=== PATIENT | male | born 1930 | race Caucasian/White ===

== ENCOUNTER 2016-10-15 13:45 | Inpatient (IN) | payer MEDICARE, OTHER ==
[2016-10-15 14:21] LABS: CHLORIDE,CL 103 mEq/L (98-106); SODIUM,NA 139 mEq/L (136-145)
[2016-10-15] MEDS ORDERED: Sodium Chloride 0.9% 10 ML Syringe FLUSH PRN (15:24)
[2016-10-15] MEDS ORDERED: Acetaminophen/HYDROcodone 325-5 MG Tab PO PRN (15:29)
[2016-10-15] MEDS ORDERED: cefTRIAXone 1 GM Vial IVPUSH ONE (15:30)
[2016-10-15] MEDS ORDERED: Levofloxacin/Dextrose 5%-Water 500 MG in Premix Bag 1 BAG IV ONE (15:30)
[2016-10-15] MEDS: Acetaminophen 325 MG Tab PO PRN (15:52)
[2016-10-15] MEDS: Naproxen 500 MG Tab PO SCH (16:57)
[2016-10-15] MEDS: Ibuprofen 200 MG Tab PO PRN (16:58)
[2016-10-15] MEDS: Zolpidem 5 MG Tab PO PRN (20:01)
[2016-10-15] MEDS: Enoxaparin 40 MG/0.4 ML Syringe SUBCUT SCH (20:01)
[2016-10-16] MEDS: Lactated Ringers 1,000 ML IV SCH ×3 (01:07→15:57)
[2016-10-16] MEDS: Pantoprazole 40 MG Tab.CR PO SCH (06:13)
[2016-10-16 07:25] LABS: CHLORIDE,CL 105 mEq/L (98-106); SODIUM,NA 139 mEq/L (136-145)
[2016-10-16] MEDS: Torsemide 20 MG Tab PO SCH (07:25)
[2016-10-16] MEDS: Naproxen 500 MG Tab PO SCH ×2 (07:25→19:50)
[2016-10-16] MEDS: amLODIPine 2.5 MG Tab PO SCH (07:26)
[2016-10-16] MEDS: Acetaminophen 325 MG Tab PO PRN ×2 (07:54→15:57)
--- NOTE | 2016-10-16 09:26 | PN ---
DATE: 10/16/2016 S: Kris Lira came in with a month of severe cellulitis of his buttocks with a small abscess. O: On examination this morning, the abscess appears to be coming, the heads all opened up, and later on today cultured. 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 C-reactive protein is up which I suspected. ASSESSMENT: CELLULITIS. P: Continue IV therapy and open an abscess. PAULA/RAMA /[id number]
[2016-10-16] MEDS: Ibuprofen 200 MG Tab PO PRN ×2 (12:28→18:51)
[2016-10-16] MEDS: Enoxaparin 40 MG/0.4 ML Syringe SUBCUT SCH (19:49)
[2016-10-16] MEDS ORDERED: Levofloxacin/Dextrose 5%-Water 100 ML IV ONE (19:50)
[2016-10-16] MEDS: cefTRIAXone 1 GM Vial IVPUSH SCH (19:50)
[2016-10-16] MEDS ORDERED: Levofloxacin/Dextrose 5%-Water 500 MG in Premix Bag 1 BAG IV SCH (20:00)
[2016-10-17] MEDS: Lactated Ringers 1,000 ML IV SCH ×3 (02:40→19:38)
[2016-10-17] MEDS: Pantoprazole 40 MG Tab.CR PO SCH (06:53)
[2016-10-17 08:00] LABS: CHLORIDE,CL 108 mEq/L (98-106); SODIUM,NA 142 mEq/L (136-145)
[2016-10-17] MEDS: amLODIPine 2.5 MG Tab PO SCH (08:04)
[2016-10-17] MEDS: Torsemide 20 MG Tab PO SCH (08:04)
[2016-10-17] MEDS: Naproxen 500 MG Tab PO SCH ×2 (08:04→19:30)
[2016-10-17] MEDS: Acetaminophen 325 MG Tab PO PRN (13:35)
[2016-10-17] MEDS: Docusate Sodium 100 MG Cap PO PRN ×2 (16:05→19:38)
[2016-10-17] MEDS: Enoxaparin 40 MG/0.4 ML Syringe SUBCUT SCH (19:28)
[2016-10-17] MEDS: cefTRIAXone 1 GM Vial IVPUSH SCH (19:31)
[2016-10-17] MEDS: Zolpidem 5 MG Tab PO PRN (21:45)
[2016-10-18] MEDS: Lactated Ringers 1,000 ML IV SCH (03:42)
[2016-10-18] MEDS: Pantoprazole 40 MG Tab.CR PO SCH (06:14)
--- NOTE | 2016-10-18 07:01 | PCM.DCSUM1 ---
Discharge Summary - Hospital Course HPI Initial Comments: Pt was admitted 10/[address] Carlson for cellulitis of buttocks which had spread up his back. He was started on IV antibiotics and has been improving. WBC on 10/15 was 35.1, 10/16 was 24.9 and 10/17 was 18.4. CRP has been going up 10/15 17.1, 10/16 19.7. 10/17 23.7. Culture did ultimately grow staph aureus and he was ultimately changed to vancomycin. Redness has improved and pain has decreased. Very little purulent drainage continues. - Discharge Data Discharge Date: 10/18/16 Discharge Disposition: DC/Tfer W/I Hosp To Swing 61 Condition: Good - Discharge Diagnosis/Problem(s) (1) Cellulitis and abscess of buttock Status: Acute Priority: High Current Visit: Yes Onset Date: ~10/14/16 - Patient Summary/Data Consults: Consultations 10/15/16 15:24 PT Evaluation and Treatment [CONS] Routine Hospital Course: Pt was admitted with cellulitis and IV antibiotics. Has been improving. Culture did grow out staph aureus. WBC has been going down and CRP is going up. He will need continued IV antibiotics so will be swung today. - Patient Instructions Diet: Regular Diet as Tolerated Activity: As Tolerated - Discharge Plan Home Medications: Home Meds amLODIPine Besylate [Amlodipine Besylate] 5 mg PO DAILY 10/12/14 [History] Calcium Carb/D3/Magnesium/Zinc [Michael Mag Zinc + D Tablet] 1 tab PO DAILY [History] Lutein 20 mg PO DAILY 10/05/15 [History] Magnesium 250 mg PO DAILY 10/05/15 [History] Cholecalciferol (Vitamin D3) [Vitamin D3] 1,000 units PO DAILY 08/25/16 [History ] Hydrocodone/Acetaminophen [Hydrocodon-Acetaminophen 5-325] 1 tab PO Q6H PRN 06/29 [History] Pantoprazole Sodium [Protonix] 40 mg PO DAILY 08/25/16 [History] Fluconazole [Diflucan] 100 mg PO DAILY 10/15/16 [History] Naproxen 500 mg PO BID 10/15/16 [History] Torsemide 20 mg PO DAILY 10/15/16 [History] Zolpidem Tartrate 10 mg PO BEDTIME PRN 10/15/16 [History] - Discharge Summary/Plan Comment DC Time >30 min.: Yes Discharge Summary/Plan Comment: transfer to swing bed. - Patient Data Vitals - Most Recent: Last Vital Signs Temp 97.0 F 10/18/16 04:00 Pulse 77 10/18/16 04:00 Resp 16 10/18/16 04:00 BP 126/67 10/18/16 04:00 Pulse Ox 92 L 10/18/16 04:00 Weight - Most Recent: 207 lb 8 oz I&O - Last 24 hours: Intake & Output 10/17/16 10/17/16 10/18/16 14:59 22:59 06:59 Intake Total 1000 1165 1000 Balance 1000 1165 1000 Lab Results - Last 24 hrs: Laboratory Results - last 24 hr 10/17/16 10/17/16 Range/Units 07:25 07:25 WBC 18.4 H (5.0-10.0) 10^3/uL RBC 2.80 L (4.50-6.00) 10^6/uL Hgb 8.8 L (14.0-18.0) g/dL Hct 27.6 L (40.0-54.0) % MCV 98.6 H (82.0-94.0) fL MCH 31.4 (27.0-32.0) pg MCHC 31.9 L (33.0-38.0) g/dL RDW Coeff of Antonio 13.9 (11.0-15.0) % Plt Count 116 L (150-400) 10^3/uL Add Manual Diff Yes Neutrophils % (Manual) 49 (35-85) % Band Neutrophils % 1 (0-5) % Lymphocytes % (Manual) 36 (21-55) % Monocytes % (Manual) 5 (2-12) % Eosinophils % (Manual) 9 H (0-5) % Absolute Neutrophils 9.20 H (1.80-7.00) 10^3/uL Lymphocytes # (Manual) 6.62 H (1.00-4.80) 10^3/uL Monocytes # (Manual) 0.92 H (0.00-0.80) 10^3/uL Eosinophils # (Manual) 1.66 H (0.00-0.45) 10^3/uL Smudge Cells Moderate H (NOT SEEN) Sodium 142 (136-145) mEq/L Potassium 4.3 (3.5-5.0) mEq/L Chloride 108 H (98-106) mEq/L Carbon Dioxide 27 (21-32) mmol/L BUN 14 (7-18) mg/dL Creatinine 1.0 (0.7-1.3) mg/dL Est Cr Clr Drug Dosing 53.20 mL/min Estimated GFR (MDRD) > 60 (>=60) mL/min Glucose 96 (75-99) mg/dL Calcium 8.1 L (8.4-10.1) mg/dL C-Reactive Protein 23.7 H (0.2-0.8) mg/dL MERLENE Results - Last 24 hrs: Microbiology 10/15/16 15:40 Aerobic Blood Culture - Preliminary Blood - Venous NO GROWTH AFTER 2 DAYS Anaerobic Blood Culture - Preliminary NO GROWTH AFTER 2 DAYS 10/15/16 15:35 Aerobic Blood Culture - Preliminary Blood - Venous - Lab Draw NO GROWTH AFTER 2 DAYS Anaerobic Blood Culture - Preliminary NO GROWTH AFTER 2 DAYS 10/16/16 09:00 Wound Culture - Preliminary Buttock, Left Staphylococcus Aureus Med Orders - Current: Current Medications Acetaminophen (Tylenol) 650 mg PO Q4H PRN PRN Reason: Pain (Mild 1-3)/fever Last Admin: 10/17/16 13:35 Dose: 650 mg Hydrocodone Bitart/Acetaminophen ([place] 325-5 Mg) 1 tab PO Q6H PRN PRN Reason: Pain Amlodipine Besylate (Norvasc) 5 mg PO DAILY [facility] Last Admin: 10/17/16 08:04 Dose: 5 mg Ceftriaxone Sodium (Rocephin) 1 gm IVPUSH Q24H [facility] Last Admin: 10/17/16 19:31 Dose: 1 gm Docusate Sodium (Colace) 100 mg PO BID PRN PRN Reason: Constipation Last Admin: 10/17/16 19:38 Dose: 100 mg Enoxaparin Sodium (Lovenox) 40 mg SUBCUT Q24H [facility] Last Admin: 10/17/16 19:28 Dose: 40 mg Lactated Ringer's (Ringers, Lactated) 1,000 mls @ 125 mls/hr IV ASDIRECTED [facility] Last Admin: 10/18/16 03:42 Dose: 125 mls/hr Vancomycin HCl 1 gm/ Sodium (Chloride) 250 mls @ 167 mls/hr IV Q24H [facility] Ibuprofen (Motrin) 600 mg PO Q6H PRN PRN Reason: Fever Last Admin: 10/16/16 18:51 Dose: 600 mg Magnesium Oxide (Magnesium Oxide) 250 mg PO DAILY [facility] Last Admin: 10/17/16 08:04 Dose: 250 mg Naproxen (Naprosyn) 500 mg PO BID [facility] Last Admin: 10/17/16 19:30 Dose: 500 mg Pantoprazole Sodium (Protonix) 40 mg PO 0700 [facility] Last Admin: 10/18/16 06:14 Dose: 40 mg Sodium Chloride (Saline Flush) 10 ml FLUSH ASDIRECTED PRN PRN Reason: Keep Vein Open Torsemide (Demadex) 20 mg PO DAILY [facility] Last Admin: 10/17/16 08:04 Dose: 20 mg Vancomycin HCl (Pharmacy To Dose - Vancomycin) 1 dose .XX ASDIRECTED [facility] Zolpidem Tartrate (Ambien) 10 mg PO BEDTIME PRN PRN Reason: Insomnia Last Admin: 10/17/16 21:45 Dose: 10 mg Discontinued Medications Ceftriaxone Sodium (Rocephin) 1 gm IVPUSH ONETIME ONE Stop: 10/15/16 15:31 Last Admin: 10/15/16 15:52 Dose: 1 gm Levofloxacin/Dextrose 500 mg/ (Premix) 100 mls @ 100 mls/hr IV ONETIME ONE Stop: 10/15/16 16:29 Last Admin: 10/15/16 15:53 Dose: 100 mls/hr Levofloxacin/Dextrose 500 mg/ (Premix) 100 mls @ 100 mls/hr IV Q24H [facility] Last Admin: 10/16/16 19:49 Dose: 100 mls/hr Levofloxacin/Dextrose (Levaquin In D5w 500 Mg/100 Ml) Confirm Administered Dose 100 mls @ as directed IV .STK-MED ONE Stop: 10/16/16 19:51 Last Admin: 10/16/16 21:35 Dose: Not Given Vancomycin HCl 1 gm/ Sodium (Chloride) 250 mls @ 167 mls/hr IV ONETIME ONE Stop: 10/17/16 16:29 Last Admin: 10/17/16 15:16 Dose: 167 mls/hr Naproxen (Naprosyn) 500 mg PO BIDMEALS [facility] Last Admin: 10/16/16 07:25 Dose: 500 mg *Q Meaningful Use (DIS) - VTE *Q VTE Criteria *Q: - Stroke *Q Stroke Criteria *Q: - AMI *Q AMI Criteria *Q:
--- NOTE | 2016-10-18 07:10 | PN ---
DATE: 10/17/2016 Kris Lira is in with staph cellulitis to the buttocks area, it is somewhat improved. I did I and D the abscess yesterday cultured it and that is how the staph was there. We do not know if it is MRSA. We are going to start him on some vancomycin. His white count is coming down nicely. C-reactive protein is going up. He is afebrile, though so clinically he is better and will probably swing him tomorrow. Continue IV antibiotics over the weekend. PAULA/RAMA /[id number]
[2016-10-18 07:37] VITALS: BP 142/76
[2016-10-18] MEDS: amLODIPine 2.5 MG Tab PO SCH (07:37)
[2016-10-18] MEDS: Naproxen 500 MG Tab PO SCH (07:38)
[2016-10-18] MEDS: Docusate Sodium 100 MG Cap PO PRN (07:40)
[2016-10-18] MEDS: Torsemide 20 MG Tab PO SCH (07:41)
[2016-10-18 08:09] LABS: CHLORIDE,CL 106 mEq/L (98-106); SODIUM,NA 142 mEq/L (136-145)
== END 2016-10-18 08:45 | disposition swing bed (61) | DRG 603 ==
LOC: CC.MS 13:45 → CC.FCMC 13:45 → UNDOADMIN 15:02 → CC.MS 15:02
PROVIDERS: ADMIT General Practice; ATTEND General Practice
DX: L03.317 Cellulitis of buttock (principal); C91.10 Chronic lymphocytic leukemia of B-cell type not having achieved remission; C85.90 Non-Hodgkin lymphoma, unspecified, unspecified site; B95.61 Methicillin susceptible Staphylococcus aureus infection as the cause of diseases classified elsewhere; R10.32 Left lower quadrant pain; Z79.899 Other long term (current) drug therapy; M19.90 Unspecified osteoarthritis, unspecified site; I10 Essential (primary) hypertension; E78.5 Hyperlipidemia, unspecified; Z85.46 Personal history of malignant neoplasm of prostate
CPT/HCPCS: 36415; 71020; 80048; 80053; 81001; 85025; 86140; 87040; 87070; 87186; 97161-GP; A9270-GY; J0696; J1650; J1956; J3370; J7050; J7120

== ENCOUNTER 2016-10-18 08:53 | Inpatient (IN) | payer MEDICARE, OTHER ==
[2016-10-18] MEDS ORDERED: Acetaminophen/HYDROcodone 325-5 MG Tab PO PRN (09:23)
[2016-10-18] MEDS ORDERED: Docusate Sodium 100 MG Cap PO PRN (09:23)
[2016-10-18] MEDS ORDERED: Ibuprofen 200 MG Tab PO PRN (09:23)
[2016-10-18] MEDS ORDERED: Sodium Chloride 0.9% 10 ML Syringe FLUSH PRN (09:23)
[2016-10-18] MEDS ORDERED: Acetaminophen 325 MG Tab PO PRN (09:23)
[2016-10-18] MEDS: Enoxaparin 40 MG/0.4 ML Syringe SUBCUT SCH (20:20)
[2016-10-18] MEDS: Naproxen 500 MG Tab PO SCH (20:20)
[2016-10-18] MEDS: cefTRIAXone 1 GM Vial IVPUSH SCH (20:20)
[2016-10-18] MEDS: Zolpidem 5 MG Tab PO PRN (20:26)
[2016-10-19] MEDS: Naproxen 500 MG Tab PO SCH ×2 (07:42→19:47)
[2016-10-19] MEDS: amLODIPine 2.5 MG Tab PO SCH (07:42)
[2016-10-19] MEDS: Torsemide 20 MG Tab PO SCH (07:42)
[2016-10-19] MEDS: Pantoprazole 40 MG Tab.CR PO SCH (07:44)
[2016-10-19 07:57] LABS: CHLORIDE,CL 108 mEq/L (98-106); SODIUM,NA 146 mEq/L (136-145)
[2016-10-19] MEDS: Zolpidem 5 MG Tab PO PRN (19:47)
[2016-10-19] MEDS: Enoxaparin 40 MG/0.4 ML Syringe SUBCUT SCH (19:47)
[2016-10-19] MEDS: cefTRIAXone 1 GM Vial IVPUSH SCH (19:48)
[2016-10-20] MEDS: Pantoprazole 40 MG Tab.CR PO SCH (06:47)
[2016-10-20] MEDS: Torsemide 20 MG Tab PO SCH (07:44)
[2016-10-20] MEDS: Naproxen 500 MG Tab PO SCH ×2 (07:45→19:40)
[2016-10-20] MEDS: amLODIPine 2.5 MG Tab PO SCH (07:45)
[2016-10-20 07:55] LABS: CHLORIDE,CL 108 mEq/L (98-106); SODIUM,NA 144 mEq/L (136-145)
[2016-10-20] MEDS: cefTRIAXone 1 GM Vial IVPUSH SCH (19:39)
[2016-10-20] MEDS: Enoxaparin 40 MG/0.4 ML Syringe SUBCUT SCH (19:39)
[2016-10-20] MEDS: Zolpidem 5 MG Tab PO PRN (19:40)
[2016-10-21] MEDS: Pantoprazole 40 MG Tab.CR PO SCH (06:19)
[2016-10-21 07:38] VITALS: BP 132/63
[2016-10-21] MEDS: Naproxen 500 MG Tab PO SCH (07:45)
[2016-10-21] MEDS: Torsemide 20 MG Tab PO SCH (07:45)
[2016-10-21] MEDS: amLODIPine 2.5 MG Tab PO SCH (07:45)
[2016-10-21 08:43] LABS: CHLORIDE,CL 105 mEq/L (98-106); SODIUM,NA 143 mEq/L (136-145)
--- NOTE | 2016-10-22 09:04 | DISCH ---
HOSPITAL COURSE: Kris Lira is an elderly gentleman with moderate to severe abscess, cellulitis of buttocks. We I and D'ed the abscess, started him on IV antibiotics. He responded nicely. At time of discharge, the abscess had ceased and cellulitis much improved. Lab and x-ray in the hospital, C-reactive protein got as high as 17, prior to discharge 3.7. White count was elevated and hemoglobin was around 10. 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 DISPOSITION: The patient is discharged home. We will see him back on Friday. DISCHARGE MEDICATIONS: Hospital medications minus antibiotics plus Cipro 500 b.i.d. for 10 days. DISCHARGE DIAGNOSIS: 1. ABSCESS, CELLULITIS, BUTTOCKS. 2. HYPERTENSION. 3. CHRONIC LYMPHOCYTIC LEUKEMIA. 4. LYMPHOMA. PAULINE /[id number]
== END 2016-10-21 10:55 | disposition home or self-care (01) | DRG 603 ==
LOC: CC.MS 09:25
PROVIDERS: ADMIT General Practice; ATTEND General Practice
DX: L03.317 Cellulitis of buttock (principal); C91.10 Chronic lymphocytic leukemia of B-cell type not having achieved remission; C85.90 Non-Hodgkin lymphoma, unspecified, unspecified site; I10 Essential (primary) hypertension; Z79.899 Other long term (current) drug therapy; M19.90 Unspecified osteoarthritis, unspecified site
CPT/HCPCS: 36415; 80048; 85025; 86140; A9270-GY; J0696; J1650; J3370; J7050

== ENCOUNTER 2017-03-13 15:45 | Emergency (ER) | payer MEDICARE, OTHER | END 2017-03-13 16:15 | disposition home or self-care (01) | LOC: CC.ED 15:45 | DX: Z53.20 Procedure and treatment not carried out because of patient's decision for unspecified reasons (principal) ==

== ENCOUNTER 2019-04-19 14:01 | Observation (INO) | payer MEDICARE, OTHER ==
[2019-04-19] MEDS ORDERED: Temazepam 15 MG Cap PO PRN (14:32)
[2019-04-19] MEDS ORDERED: Acetaminophen/HYDROcodone 325-5 MG Tab**OWN MED PO PRN (14:38)
[2019-04-19 15:09] LABS: CHLORIDE,CL 105 mEq/L (98-106); SODIUM,NA 144 mEq/L (136-145)
[2019-04-19] MEDS ORDERED: Pantoprazole 40 MG Vial IVPUSH ONE (15:15)
[2019-04-19] MEDS ORDERED: Iopamidol 755 Mg/ML 100 ML Bottle IVPUSH ONE (15:19)
[2019-04-19] MEDS ORDERED: Barium Sulfate Oral Susp 450 ML Bottle PO ONE (15:19)
[2019-04-19] MEDS: Sodium Chloride 0.9% 1,000 ML IV SCH ×2 (15:36→23:32)
[2019-04-19] MEDS ORDERED: Enoxaparin 40 MG/0.4 ML Syringe SUBCUT SCH (16:00)
[2019-04-19] MEDS ORDERED: Non-Formulary Medication 1 Each (Glycopyrrolate/Formoterol Fum [Bevespi Aerosphere Inhaler INH SCH (20:00)
[2019-04-20] MEDS ORDERED: LISINOPRIL PO SCH (08:00)
[2019-04-20] MEDS ORDERED: ALLOPURINOL 100 MG PO SCH (08:00)
[2019-04-20] MEDS ORDERED: amLODIPine 10 MG Tab PO SCH (08:00)
[2019-04-20] MEDS ORDERED: Polyethylene Glycol 3350 Powder 17 GM Packet PO SCH (08:00)
[2019-04-20] MEDS ORDERED: HYDROCHLOROTHIAZIDE PO SCH (08:00)
[2019-04-20 08:58] VITALS: BP 120/49; PULSE 56
--- NOTE | 2019-04-20 11:13 | PCM.DCSUM1 ---
Discharge Summary - Hospital Course Free Text/Narrative:: Patient presents with increasing weakness, abdominal discomfort, fatigue and activity intolerance. States awakens in am with lower quadrant abdominal pain. Does feel it improves over the course of the day after taking Protonix and Reglan but doesn't seem to have helped as much over the last few days. Appetite has been good. Has noted bowel changes. Has felt unsteady at times. Has history of CLL, has been on chemotherapy in the past. Done well over the last year. Admitted and started on IV fluids. CT scan of abdomen and pelvis ordered. WBC 7.1, hemoglobin 12.6. Electrolytes, creatinine normal. UA negative. Diagnosis: Stroke: No Modified [place] Scale: No Symptoms at All Modified [place] Scale Score: 0 - Discharge Data Discharge Date: 04/20/19 Discharge Disposition: Home, Self-Care 01 Condition: Good - Referral to Home Health Primary Care Physician: Misbah Tran MD - Patient Summary/Data Complications: none Hospital Course: Patient doing well today. Feels less bloating and abdominal discomfort today. No fevers. Labs are all stable, WBC 7.1, CRP negative. Hemoglobin 12.6. Troponin negative. CT scan of his abdomen and pelvis was done, does show enlargement of some lymph nodes but otherwise clear. Patient has previously been a patient who Dr. Owens and Dr. Crawford, who has since retired. Will likely need to see new oncologist for recommendations. Patient expresses that unlikley he would proceed with any more chemo if needed. Will discharge home. Follow up with Dr. Tran next week. Will address further referral at that time. - Patient Instructions Diet: Usual Diet as Tolerated Activity: As Tolerated - Discharge Plan *PRESCRIPTION DRUG MONITORING PROGRAM REVIEWED*: No *COPY OF PRESCRIPTION DRUG MONITORING REPORT IN PATIENT SARAH: No Home Medications: Home Meds amLODIPine Besylate [Amlodipine Besylate] 5 mg PO DAILY 10/12/14 [History] Hydrocodone/Acetaminophen [Hydrocodon-Acetaminophen 5-325] 1 - 2 tab PO Q6H PRN 08/25/16 [History] Zolpidem Tartrate 10 mg PO BEDTIME PRN 10/15/16 [History] Metoclopramide HCl 10 mg PO Q6HR PRN 03/13/17 [History] Allopurinol [Zyloprim] 100 mg PO DAILY 04/19/19 [History] Diethylpropion HCl [Diethylpropion HCl ER] 0.5 - 1 tab PO DAILY PRN 04/19/19 [ History] Glycopyrrolate/Formoterol Fum [Bevespi Aerosphere Inhaler] 2 puff INH BID [History] Lisinopril/Hydrochlorothiazide [Lisinopril-HCTZ 10-12.5 MG] 1 tab PO DAILY 04/19 [History] Pantoprazole Sodium 40 mg PO DAILY 04/19/19 [History] Polyethylene Glycol 3350 [MiraLAX] 1 packet PO DAILY 04/19/19 [History] Referrals: Misbah Tran MD [Primary Care Provider] - (Follow up with Dr. Tran in one week, labs prior to appointment) - Discharge Summary/Plan Comment DC Time >30 min.: No - General Info Date of Service: 04/20/19 Admission Dx/Problem (Free Text: Generalized Weakness Dizziness Functional Status: Reports: Pain Controlled, Tolerating Diet, Ambulating - Review of Systems General: Reports: Weakness, Fatigue HEENT: Reports: No Symptoms Pulmonary: Denies: Shortness of Breath, Cough Cardiovascular: Denies: Chest Pain, Edema, Lightheadedness Gastrointestinal: Reports: Abdominal Pain, Nausea. Denies: Vomiting Genitourinary: Reports: No Symptoms Musculoskeletal: Reports: No Symptoms Skin: Reports: No Symptoms Neurological: Reports: No Symptoms - Patient Data Vitals - Most Recent: Last Vital Signs Temp 99 F 04/20/19 08:00 Pulse 56 L 04/20/19 08:00 Resp 18 04/20/19 08:00 BP 120/49 L 04/20/19 08:00 Pulse Ox 97 04/20/19 08:00 Weight - Most Recent: 199 lb 4.8 oz I&O - Last 24 hours: Intake & Output 04/19/19 04/20/19 04/20/19 22:59 06:59 14:59 Intake Total 992 Balance 992 Lab Results - Last 24 hrs: Laboratory Results - last 24 hr 04/19/19 04/19/19 04/19/19 Range/Units 14:32 14:50 14:50 WBC 7.1 (5.0-10.0) 10^3/uL RBC 4.04 L (4.50-6.00) 10^6/uL Hgb 12.6 L (14.0-18.0) g/dL Hct 37.7 L (40.0-54.0) % MCV 93.3 (82.0-94.0) fL MCH 31.2 (27.0-32.0) pg MCHC 33.4 (33.0-38.0) g/dL RDW Coeff of Antonio 12.7 (11.0-15.0) % Plt Count 222 (150-400) 10^3/uL Neut % (Auto) 77.5 (35-85) % Lymph % (Auto) 10.6 (10-55) % [place] % (Auto) 7.6 (0-16) % Eos % (Auto) 3.7 (0-5) % Baso % (Auto) 0.6 (0-3) % Neut # (Auto) 5.48 (1.80-7.00) 10^3/uL Lymph # (Auto) 0.75 L (1.00-4.80) 10^3/uL [place] # (Auto) 0.54 (0.00-0.80) 10^3/uL Eos # (Auto) 0.26 (0.00-0.45) 10^3/uL Baso # (Auto) 0.04 10^3/uL D-Dimer, Quantitative (0.00-0.50) Sodium 144 (136-145) mEq/L Potassium 3.8 (3.5-5.0) mEq/L Chloride 105 (98-106) mEq/L Carbon Dioxide 30 (21-32) mmol/L BUN 18 (7-18) mg/dL Creatinine 1.0 (0.7-1.3) mg/dL Est Cr Clr Drug Dosing 50.35 mL/min Estimated GFR (MDRD) > 60 (>=60) mL/min Glucose 102 H D (75-99) mg/dL Calcium 8.9 (8.4-10.1) mg/dL Magnesium 2.1 (1.8-2.4) mg/dL Total Bilirubin 0.7 (0.0-1.0) mg/dL AST 11 L (15-37) U/L ALT 11 L (12-78) U/L Alkaline Phosphatase 79 (46-116) U/L Troponin I < 0.017 (0.00-0.06) ng/mL C-Reactive Protein 0.2 (0.2-0.8) mg/dL Total Protein 6.5 (6.4-8.2) g/dL Albumin 3.6 (3.4-5.0) g/dL Urine Color Yellow (YELLOW) Urine Appearance Clear (CLEAR) Urine pH 6.5 (4.5-8.0) Ur Specific [place] 1.010 (1.003-1.020) Urine Protein Negative (NEGATIVE) mg/dL Urine Glucose (UA) Negative (NEGATIVE) mg/dL Urine Ketones Negative (NEGATIVE) mg/dL Urine Occult Blood Negative (NEGATIVE) Urine Nitrite Negative (NEGATIVE) Urine Bilirubin Negative (NEGATIVE) Urine Urobilinogen 0.2 (0.2-1.0) EU/dL Ur Leukocyte Esterase Negative (NEGATIVE) Urine RBC Not seen (0-5) /HPF Urine WBC Not seen (0-5) /HPF 04/19/19 Range/Units 14:50 WBC (5.0-10.0) 10^3/uL RBC (4.50-6.00) 10^6/uL Hgb (14.0-18.0) g/dL Hct (40.0-54.0) % MCV (82.0-94.0) fL MCH (27.0-32.0) pg MCHC (33.0-38.0) g/dL RDW Coeff of Antonio (11.0-15.0) % Plt Count (150-400) 10^3/uL Neut % (Auto) (35-85) % Lymph % (Auto) (10-55) % [place] % (Auto) (0-16) % Eos % (Auto) (0-5) % Baso % (Auto) (0-3) % Neut # (Auto) (1.80-7.00) 10^3/uL Lymph # (Auto) (1.00-4.80) 10^3/uL [place] # (Auto) (0.00-0.80) 10^3/uL Eos # (Auto) (0.00-0.45) 10^3/uL Baso # (Auto) 10^3/uL D-Dimer, Quantitative 0.58 H (0.00-0.50) Sodium (136-145) mEq/L Potassium (3.5-5.0) mEq/L Chloride (98-106) mEq/L Carbon Dioxide (21-32) mmol/L BUN (7-18) mg/dL Creatinine (0.7-1.3) mg/dL Est Cr Clr Drug Dosing mL/min Estimated GFR (MDRD) (>=60) mL/min Glucose (75-99) mg/dL Calcium (8.4-10.1) mg/dL Magnesium (1.8-2.4) mg/dL Total Bilirubin (0.0-1.0) mg/dL AST (15-37) U/L ALT (12-78) U/L Alkaline Phosphatase (46-116) U/L Troponin I (0.00-0.06) ng/mL C-Reactive Protein (0.2-0.8) mg/dL Total Protein (6.4-8.2) g/dL Albumin (3.4-5.0) g/dL Urine Color (YELLOW) Urine Appearance (CLEAR) Urine pH (4.5-8.0) Ur Specific [place] (1.003-1.020) Urine Protein (NEGATIVE) mg/dL Urine Glucose (UA) (NEGATIVE) mg/dL Urine Ketones (NEGATIVE) mg/dL Urine Occult Blood (NEGATIVE) Urine Nitrite (NEGATIVE) Urine Bilirubin (NEGATIVE) Urine Urobilinogen (0.2-1.0) EU/dL Ur Leukocyte Esterase (NEGATIVE) Urine RBC (0-5) /HPF Urine WBC (0-5) /HPF Med Orders - Current: Current Medications Discontinued Medications Hydrocodone Bitart/Acetaminophen ([place] 325-5 Mg) 1 tab PO Q6H PRN PRN Reason: Pain Last Admin: 04/19/19 23:49 Dose: 1 tab Allopurinol (Zyloprim) 100 mg PO DAILY [facility] Last Admin: 04/20/19 07:35 Dose: 100 mg Amlodipine Besylate (Norvasc) 5 mg PO DAILY [facility] Barium Sulfate (Readi-Cat 2) 900 ml PO ONETIME ONE Stop: 04/19/19 15:20 Last Admin: 04/19/19 17:11 Dose: 900 ml Enoxaparin Sodium (Lovenox) 40 mg SUBCUT Q24H [facility] Last Admin: 04/19/19 16:48 Dose: 40 mg Sodium Chloride (Normal Saline) 1,000 mls @ 125 mls/hr IV ASDIRECTED [facility] Last Admin: 04/19/19 23:32 Dose: 125 mls/hr Iopamidol (Isovue-370 (76%)) 100 ml IVPUSH ONETIME ONE Stop: 04/19/19 15:20 Last Admin: 04/19/19 17:11 Dose: 100 ml Non-Formulary Medication (Glycopyrrolate/Formoterol Fum [Bevespi Aerosphere Inhaler]) 2 puff INH BID [facility] Lisinopril/Hydrochlorothiazide 10/12.5 MgOwn Med* * 1 tab PO DAILY [facility] Last Admin: 04/20/19 07:36 Dose: 1 tab Pantoprazole Sodium (Protonix Iv) 40 mg IVPUSH ONETIME ONE Stop: 04/19/19 15:16 Last Admin: 04/19/19 15:34 Dose: 40 mg Polyethylene Glycol (Miralax) 17 gm PO DAILY [facility] Last Admin: 04/20/19 07:39 Dose: 17 gm Temazepam (Restoril) 15 mg PO BEDTIME PRN PRN Reason: Sleep Last Admin: 04/19/19 22:01 Dose: 15 mg - Exam General: Reports: Alert, Oriented HEENT: Reports: Mucous Membr. Moist/[place]: Reports: Supple Lungs: Reports: Clear to Auscultation, Normal Respiratory Effort Cardiovascular: Reports: Regular Rate, Regular Rhythm GI/Abdominal Exam: Normal Bowel Sounds, Soft, Non-Tender Extremities: Normal Inspection, No Pedal Edema Skin: Reports: Warm, Dry Neurological: Reports: No New Focal Deficit
== END 2019-04-20 09:45 | disposition home or self-care (01) ==
LOC: CC.MS 14:01 → UNDOADMOB 14:01 → CC.MS 14:32
PROVIDERS: ADMIT Family Medicine; ATTEND Family Medicine
DX: R53.1 Weakness (principal); R06.02 Shortness of breath; I10 Essential (primary) hypertension; K21.9 Gastro-esophageal reflux disease without esophagitis; J44.9 Chronic obstructive pulmonary disease, unspecified; E78.5 Hyperlipidemia, unspecified; M19.90 Unspecified osteoarthritis, unspecified site; M10.9 Gout, unspecified; Z79.899 Other long term (current) drug therapy; Z79.891 Long term (current) use of opiate analgesic; Z87.891 Personal history of nicotine dependence
CPT/HCPCS: 36415; 71046; 74177; 80053; 81001; 83735; 84484; 85025; 85379; 86140; 93005; 96361; 96372; 96374; A9270-GY; C9113; G0378; J1650; J7030; Q9967

== ENCOUNTER 2019-06-15 10:58 | Observation (INO) | payer MEDICARE, OTHER ==
[2019-06-15] MEDS ORDERED: Acetaminophen 650 MG Supp RECTAL PRN (13:21)
[2019-06-15] MEDS ORDERED: Ondansetron 4 MG Tab.DIS PO PRN (13:21)
[2019-06-15] MEDS ORDERED: Pantoprazole 40 MG Vial IVPUSH ONE (13:21)
[2019-06-15] MEDS ORDERED: Zolpidem 5 MG Tab PO PRN (13:37)
[2019-06-15] MEDS ORDERED: Acetaminophen/HYDROcodone 325-5 MG Tab PO PRN (13:40)
[2019-06-15] MEDS: Enoxaparin 30 MG/0.3 ML Syringe SUBCUT SCH (13:51)
[2019-06-15] MEDS: Sodium Chloride 0.9% 1,000 ML IV SCH (13:51)
[2019-06-15] MEDS ORDERED: HYDROCODONE PO PRN (14:42)
[2019-06-15] MEDS ORDERED: ACETAMINOPHEN PO PRN (14:42)
[2019-06-15] MEDS: FORMOTEROL FUM INH SCH (19:44)
[2019-06-15] MEDS: GLYCOPYRROLATE INH SCH (19:44)
[2019-06-15] MEDS ORDERED: amLODIPine 5 MG Tab**OWN MED PO SCH (20:00)
[2019-06-15] MEDS: ZOLPIDEM 5 MG PO PRN (21:43)
[2019-06-16] MEDS: ZOLPIDEM 5 MG PO PRN (02:32)
[2019-06-16] MEDS ORDERED: LISINOPRIL HCTZ PO SCH (08:00)
[2019-06-16] MEDS ORDERED: Allopurinol 100 MG Tab**OWN MED PO SCH (08:00)
[2019-06-16] MEDS ORDERED: Hydrochlorothiazide 12.5 MG Cap PO SCH (08:00)
[2019-06-16] MEDS: Sodium Chloride 0.9% 1,000 ML IV SCH (08:32)
[2019-06-16] MEDS: GLYCOPYRROLATE INH SCH (08:34)
[2019-06-16] MEDS: FORMOTEROL FUM INH SCH (08:34)
[2019-06-16] MEDS ORDERED: Polyethylene Glycol 3350 Powder 17 GM Packet PO SCH (10:15)
--- NOTE | 2019-06-16 12:11 | PN ---
DATE: 06/16/2019 S: Kris is an 89-year-old gentleman who has been dealing with weakness and decreased appetite. He did see Conchita Ghosh on the 06/09, was given IV fluids as we thought he might have been getting dehydrated. Symptoms have been going on for roughly last 3 to 4 weeks. Has had some diarrhea for the past couple of weeks; however, he does relate this to the MiraLAX. He states that whenever he takes MiraLAX, he goes to the bathroom twice a day and it is typically diarrhea or loose stools. He has not had any nausea, no vomiting. He states he just has no appetite, able to eat a little bit and then just has no urge to eat anymore. He states he almost has to force himself to eat. He has been drinking fluids okay. He states he has not had any bowel movements today. His MiraLAX has been held yesterday. Denies any abdominal discomfort today. He states that he still just is not able to eat, only was able to eat a few bites of his toast this morning. He has been dealing with CLL in which he had been on chemotherapy medications. This has been held for the last week as well as his oncologist thought maybe this is secondary to it. He admits he does not think holding the drug has had any effects. He does admit to a little bit of abdominal fullness and bloating sensation in the epigastric region. He was given IV dose of Protonix yesterday. O: VITAL SIGNS: Blood pressure 127/65; O2 is 97% on room air; respirations are 20; the pulse is 77; and temperature, he has been afebrile, 97.3. GENERAL: Pleasant cooperative male. He is sitting in the chair, does not really appear to be in any acute distress, not acutely ill. HEENT: Head is normocephalic and atraumatic. Sclerae and conjunctivae are clear. Hearing aids in bilaterally. Nasal mucosa appears pink and moist. No bleeding noted. Oral mucosa is pink and moist. Speech is normal. NECK: Supple. No lymphadenopathy is noted. LUNGS: Clear to auscultation. I do not hear any adventitious sounds. HEART: He does have a grade 2 systolic murmur noted. Regular rate and rhythm. No pedal edema is noted. ABDOMEN: Soft. Really no tenderness per se. No hepatomegaly. No splenomegaly. EXTREMITIES: Normal skin. Again, no pedal edema. ASSESSMENT: 1. WEAKNESS. 2. DECREASED APPETITE. 3. CHRONIC LYMPHOCYTIC LEUKEMIA. 4. DIARRHEA, RESOLVED, LIKELY MIRALAX INDUCED. P: We did discontinue C. difficile study secondary to being on MiraLAX. Again, no diarrhea today. Due to bloating sensation, I do recommend we get an EGD. I did consult Dr. Tran. We will plan for EGD in the morning. We will consider IV fluids at 50 mL/hour. We will continue normal diet until supper. He will have clear liquid at supper with water until midnight and then n.p.o. after midnight. No other change in medications at this point in time. We will keep him ambulating. We will order PT for strengthening as well. CORWIN /[id number]
[2019-06-16 13:32] VITALS: BP 126/54; PULSE 60
[2019-06-16] MEDS: Enoxaparin 30 MG/0.3 ML Syringe SUBCUT SCH (15:26)
--- NOTE | 2019-06-18 08:30 | DISCH ---
ADMISSION DIAGNOSIS: Weakness, diarrhea, chronic lymphocytic leukemia, lymphoma, decreased appetite. DISCHARGE DIAGNOSIS: WEAKNESS, DIARRHEA, CHRONIC LYMPHOCYTIC LEUKEMIA, LYMPHOMA, DECREASED APPETITE. HISTORY OF PRESENT ILLNESS: Kris is an 89-year-old male who was admitted to the hospital yesterday by Dr. Misbah Tran. Had seen Conchita Ghosh on 06/09/2019 as well. Has been dealing with it for the last 3 to 4 weeks. He has felt decreased appetite. He is unable to really eat any food. He has been using MiraLax on a regular basis, which was concerning in regard to his diarrhea. He has not had any nausea or vomiting. Just has not felt right. Typically, he just is unable to eat full meals. He eats a few bites and then feels like he just does not have any appetite anymore. He did have some abdominal fullness and bloating sensation. BRIEF HOSPITAL COURSE: The patient had an uneventful stay, has been ambulating, walking around without any distress. There continues to be decreased appetite. Lab values have been grossly unremarkable. PHYSICAL EXAMINATION: VITAL SIGNS: Have been stable. GENERAL: Pleasant, cooperative male, in no acute distress, not acutely ill. HEENT: Grossly unremarkable. LUNGS: Clear to auscultation. I did not hear any adventitious sounds. CARDIAC: Regular rate and rhythm. Grade 2 systolic murmur noted. No pedal edema is noted. ABDOMEN: Soft. Really no tenderness. No hepatomegaly. No splenomegaly. Bowel sounds are present and normoactive. EXTREMITIES: No pedal edema. DISPOSITION: Discharged home. DIET: May have usual diet as tolerated. DISCHARGE MEDICATIONS: Include all home medications. We will hold his MiraLax and his Reglan at this time. DISCHARGE INSTRUCTIONS: Will have esophagogastroduodenoscopy on Friday with Dr. Tran for abdominal bloating and decreased appetite. RENE/MODL /[id number]
== END 2019-06-16 15:49 | disposition home or self-care (01) ==
LOC: UNDOADMOB 10:58 → CC.MS 10:58
PROVIDERS: ADMIT Family Medicine; ATTEND Family Medicine
DX: R53.1 Weakness (principal); R19.7 Diarrhea, unspecified; C91.10 Chronic lymphocytic leukemia of B-cell type not having achieved remission; C85.90 Non-Hodgkin lymphoma, unspecified, unspecified site; R63.0 Anorexia; J44.9 Chronic obstructive pulmonary disease, unspecified; F32.9 Major depressive disorder, single episode, unspecified; I10 Essential (primary) hypertension; K21.9 Gastro-esophageal reflux disease without esophagitis; E78.5 Hyperlipidemia, unspecified; M19.90 Unspecified osteoarthritis, unspecified site; M10.9 Gout, unspecified; Z79.899 Other long term (current) drug therapy; Z87.891 Personal history of nicotine dependence
CPT/HCPCS: 36415; 80053; 81001; 85025; 86140; 87045; 87046; 96361; 96372; 96374; 97161-GP; A9270-GY; C9113; G0378; J1650; J7030

== ENCOUNTER → 2019-06-18 | Day surgery (SDC) | payer MEDICARE, OTHER ==
[~2019-06-18] MED LIST: Lactated Ringers 1,000 ML IV SCH; Propofol 200 MG/20 ML SDV IV ONE
[2019-06-18 09:46] VITALS: BP 121/49; PULSE 52
--- NOTE | 2019-06-18 13:46 | OR ---
DATE OF OPERATION: 06/18/2019 PREOPERATIVE DIAGNOSIS: EPIGASTRIC PAIN. POSTOPERATIVE DIAGNOSIS: EPIGASTRIC PAIN. SURGEON: Misbah Tran MD PROCEDURE: EGD WITH BIOPSY X1, JOSSE. FORCEPS POLYP REMOVAL X1. ANESTHESIA: MAC. COMPLICATIONS: None. SPECIMEN: 1. Duodenal bulb biopsy x1. 2. Antral JOSSE. 3. Fundal polyp. FINDINGS: 1. Full-length EGD. 2. Minimal duodenitis, duodenal bulb. 3. Benign adenomatous polyp, distal fundus. RECOMMENDATIONS: Medical followup. INDICATIONS: Kris is an 89-year-old, has had ongoing issues with epigastric discomfort, postprandial symptoms including fullness. We proceeded with an EGD to rule out peptic ulcer disease. DESCRIPTION OF PROCEDURE: The patient was prepped and draped, placed in the left lateral decubitus position. A lubricated Olympus gastroscope was inserted over a bit and advanced to cricopharyngeus area and easily intubated into the esophagus. The esophageal lining was benign in its entire course. The Z-line was crisp and sharp right at 40 cm. No hernia. No spontaneous reflux, distal esophagitis, or Balderas's changes seen. The scope was then advanced into the stomach, through the pylorus, into the second portion of the duodenum. This appeared benign. The duodenal bulb had some very minimal signs of duodenitis, maybe a little heterotopic gastric tissue. We did a biopsy of the area, but very minimal. The scope was brought back into the stomach and retroflexed. The upper fundus and cardia appeared unremarkable. Upon straightening, the patient did have a small adenomatous polyp in the distal portion of the fundus which was removed in its entirety with a forceps. The antrum and peripyloric area were unremarkable. We did do a CLOtest. Air was suctioned, scope removed without complication. RADHA/RAMA /[id number]
== END ==
LOC: CC.SDS 07:58
PROVIDERS: ATTEND Family Medicine
DX: K29.80 Duodenitis without bleeding (principal); K31.89 Other diseases of stomach and duodenum; J44.9 Chronic obstructive pulmonary disease, unspecified; F32.9 Major depressive disorder, single episode, unspecified; I10 Essential (primary) hypertension; K21.9 Gastro-esophageal reflux disease without esophagitis; E78.5 Hyperlipidemia, unspecified; M19.90 Unspecified osteoarthritis, unspecified site; M10.9 Gout, unspecified; Z87.891 Personal history of nicotine dependence; Z79.899 Other long term (current) drug therapy
CPT/HCPCS: 43239; 87081; J2704; J7120; 00731

== ENCOUNTER 2020-12-11 16:45 | Observation (INO) | payer MEDICARE, OTHER ==
--- NOTE | 2020-12-11 17:29 | EDM.PDOC ---
ED HPI GENERAL MEDICAL PROBLEM - General Chief Complaint: General Stated Complaint: Dizziness Time Seen by Provider: 12/11/20 17:02 Source of Information: Reports: Patient, Family History Limitations: Reports: No Limitations - History of Present Illness INITIAL COMMENTS - FREE TEXT/NARRATIVE: This patient is an 89 year old male that presents to the ER. Patient arrives with family at bedside. The patient reports that yesterday he was feeling fine, he went to visit his in the [facility]. Patient reports he woke up this morning, was feeling okay, but fixing breakfast, he had to sit down several times due to feeling lightheaded. Patient family reports he had to sit down 4xs breakfast time. The patient reports that he walks with family and was walking out the door today and felt lightheaded again. Patient reports he has been lightheaded today, mostly with standing. Patient family reports they took his BP at home and it was 80s/40s. The patient reports that today he had x1 episode of diarrhea. The patient reports that he fell about 3 weeks and and fractured 6 ribs on the left chest side. Patient reports he has continued shortness of breath since that fall. Patient reports last week he had increased edema in feet, increased lasix for 3 days and that resolved per patient. Patient reports his swelling in feet is a little worse today. The patient denies any pain other than from his left ribs. He denies any new pain, denies any new shortness of breath. Patient denies headache, n, v, f, chest pain new, abd pain, new back pain, urinary changes. Patient does report a rash on his buttock that he has for several weeks. Patient is alert and oriented. Patient denies any unilateral weaknesses. Onset: Today Onset Date: 12/11/20 Onset Time: 09:00 Severity: Moderate Improves with: Reports: Movement Worsens with: Reports: Rest Associated Symptoms: Reports: Shortness of Breath (unchanged for 3 weeks since rib fractures). Denies: Confusion, Chest Pain (no new chest pain. Left lateral rib/chest pain), Cough, cough w sputum, Loss of Appetite, Malaise, Syncope - Related Data Allergies Allergy/AdvReac Type Severity Reaction Status Date / Time No Known Allergies Allergy Verified 12/11/20 16:57 Home Meds: Home Meds amLODIPine Besylate [Amlodipine Besylate] 5 mg PO DAILY 10/12/14 [History] Hydrocodone/Acetaminophen [Hydrocodone-Acetamin 5-325 mg] 1 - 2 tab PO Q6H PRN 08/25/16 [History] Zolpidem Tartrate 5 - 10 mg PO BEDTIME PRN 10/15/16 [History] Lisinopril/Hydrochlorothiazide [Lisinopril-HCTZ 10-12.5 MG] 1 tab PO DAILY 04/19/19 [History] Pantoprazole Sodium 40 mg PO DAILY 04/19/19 [History] allopurinoL [Zyloprim] 100 mg PO DAILY 04/19/19 [History] Mirtazapine 1 tab PO BEDTIME 08/10/20 [History] Past Medical History HEENT History: Reports: Impaired Vision Cardiovascular History: Reports: High Cholesterol, Hypertension, SOB on Exertion Gastrointestinal History: Reports: GERD, Other (See Below) Other Gastrointestinal History: ulcer Genitourinary History: Reports: Other (See Below) Other Genitourinary History: reports trouble urinating Musculoskeletal History: Reports: Arthritis, Other (See Below) Other Musculoskeletal History: weakness Endocrine/Metabolic History: Reports: Obesity/BMI 30+ Oncologic (Cancer) History: 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, Lymphoma, Prostate - Past Surgical History HEENT Surgical History: Reports: Tonsillectomy GI Surgical History: Reports: Appendectomy, Cholecystectomy Social & Family History - Family History Family Medical History: No Pertinent Family History - Tobacco Use Tobacco Use Status *Q: Never Tobacco User Second Hand Smoke Exposure: No - Caffeine Use Caffeine Use: Reports: None - Recreational Drug Use Recreational Drug Use: No ED ROS GENERAL - Review of Systems Review Of Systems: See Below Constitutional: Reports: Weakness, Fatigue HEENT: Reports: No Symptoms Respiratory: Reports: Shortness of Breath (unchanged for 3 weeks post fall/rib fractures), Pleuritic Chest Pain. Denies: Wheezing, Cough, Sputum Cardiovascular: Reports: Blood Pressure Problem (hypotension), Edema, Lightheadedness. Denies: Chest Pain, Dyspnea on Exertion, Palpitations, Syncope Endocrine: Reports: No Symptoms GI/Abdominal: Reports: Diarrhea (x1). Denies: Abdominal Pain, Constipation, Nausea : Reports: No Symptoms Musculoskeletal: Reports: Back Pain (left lateral thoracic rib fractures) Skin: Reports: Rash (buttock) Neurological: Reports: No Symptoms. Denies: Confusion, Headache, Numbness, Seizure, Syncope, Tingling, Trouble Speaking, Weakness, Change in Speech Psychiatric: Reports: No Symptoms Hematologic/Lymphatic: Reports: No Symptoms Immunologic: Reports: No Symptoms ED EXAM, GENERAL - Physical Exam Exam: See Below Exam Limited By: No Limitations General Appearance: Alert, WD/WN, No Apparent Distress Eye Exam: Bilateral Eye: Normal Inspection, PERRL Ears: Normal External Exam, Normal Canal, Hearing Grossly Normal, Normal TMs, Other (hearing aids removed and replaced) Ear Exam: Bilateral Ear: Auricle Normal, Canal Normal, TM normal Nose: Normal Inspection, Normal Mucosa, No Blood Throat/Mouth: Normal Inspection, Normal Lips, Normal Teeth (dentures), Normal Gums, Normal Oropharynx, Normal Voice, No Airway Compromise Head: Atraumatic, Normocephalic Neck: Normal Inspection, Supple, Non-Tender, Full Range of Motion Respiratory/Chest: No Respiratory Distress, Lungs Clear, Normal Breath Sounds, No Accessory Muscle Use, Other (tenderness left lateral side over 3 week old rib fractures) Cardiovascular: Normal Peripheral Pulses, Regular Rate, Rhythm, No JVD, Systolic Murmur (Grade 3) Peripheral Pulses: 2+: Radial (L), Radial (R), Posterior Tibial (L), Posterior Tibial (R), Dorsalis Pedis (L), Dorsalis Pedis (R) GI/Abdominal: Normal Bowel Sounds, Soft, Non-Tender, No Organomegaly, No Distention, No Mass, Pelvis Stable (Male) Exam: Deferred Rectal (Males) Exam: Deferred Back Exam: Full Range of Motion, Paraspinal Tenderness (left lateral thoracic tenderness old rib fractures 3 weeks. ) Extremities: Normal Inspection, Normal Range of Motion, Non-Tender, Normal Capillary Refill, Pedal Edema (+1 BLE) Neurological: Alert, Oriented, CN II-XII Intact, Normal Cognition, No Motor/Sensory Deficits, Other (GCS: 15, Stroke Score 0. No unilateral weaknesses) Psychiatric: Normal Affect, Normal Mood Skin Exam: Warm, Dry, Intact, Ecchymosis (All across lower lumbar region old, healing from rib fractures), Rash (buttock) Lymphatic: No Adenopathy #1 Interpretation EKG Date: 12/11/20 Time: 17:46 Rhythm: NSR Rate (Beats/Min): 77 ST-T: Normal ME/PQ Interval: PACs Course - Vital Signs Last Recorded V/S: Last Vital Signs Temp 97.0 F 12/11/20 16:52 Pulse 93 12/11/20 16:52 Resp 16 12/11/20 16:52 BP 125/47 L 12/11/20 16:52 Pulse Ox 96 12/11/20 16:52 - Orders/Labs/Meds Orders: Active Orders 24 hr Category Date Time Status Patient Status Manage Transfer [TRANSFER] Routine ADT 12/11/20 18:27 Active Chest 2V [CR] Stat Exams 12/11/20 17:16 Taken Head wo Cont [CT] Stat Exams 12/11/20 17:16 Ordered CULTURE BLOOD [BC] Stat Lab 12/11/20 17:38 Received CULTURE BLOOD [BC] Stat Lab 12/11/20 17:38 Received Blood Culture x2 Reflex Set [OM.PC] Stat Oth 12/11/20 17:19 Ordered Resuscitation Status Routine Resus Stat 12/11/20 18:28 Ordered Labs: Laboratory Tests 12/11/20 12/11/20 12/11/20 Range/Units 17:17 17:38 17:38 WBC 6.9 (5.0-10.0) 10^3/uL RBC 4.15 L (4.50-6.00) 10^6/uL Hgb 12.3 L (14.0-18.0) g/dL Hct 36.7 L (40.0-54.0) % MCV 88.4 (82.0-94.0) fL MCH 29.6 (27.0-32.0) pg MCHC 33.5 (33.0-38.0) g/dL RDW Coeff of Antonio 15.1 H (11.0-15.0) % Plt Count 260 (150-400) 10^3/uL Neut % (Auto) 73.8 (35-85) % Lymph % (Auto) 13.5 (10-55) % [place] % (Auto) 7.5 (0-16) % Eos % (Auto) 4.8 (0-5) % Baso % (Auto) 0.4 (0-3) % Neut # (Auto) 5.10 (1.80-7.00) 10^3/uL Lymph # (Auto) 0.93 L (1.00-4.80) 10^3/uL [place] # (Auto) 0.52 (0.00-0.80) 10^3/uL Eos # (Auto) 0.33 (0.00-0.45) 10^3/uL Baso # (Auto) 0.03 10^3/uL PT 10.6 (9.7-12.3) SEC INR 0.97 (0.92-1.18) Sodium (136-145) mEq/L Potassium (3.5-5.0) mEq/L Chloride (98-106) mEq/L Carbon Dioxide (21-32) mmol/L BUN (7-18) mg/dL Creatinine (0.7-1.3) mg/dL Est Cr Clr Drug Dosing mL/min Estimated GFR (MDRD) (>=60) mL/min Glucose (75-99) mg/dL Lactic Acid (0.4-2.0) mmol/L Calcium (8.4-10.1) mg/dL Total Bilirubin (0.0-1.0) mg/dL AST (15-37) U/L ALT (12-78) U/L Alkaline Phosphatase (46-116) U/L Lactate Dehydrogenase (100-190) U/L Creatine Kinase (35-232) U/L Troponin I (0.00-0.06) ng/mL C-Reactive Protein (0.2-0.8) mg/dL NT-Pro-B Natriuret Pep (0-1000) pg/mL Total Protein (6.4-8.2) g/dL Albumin (3.4-5.0) g/dL Urine Color Yellow (YELLOW) Urine Appearance Clear (CLEAR) Urine pH 6.0 (4.5-8.0) Ur Specific Hancock 1.015 (1.003-1.020) Urine Protein Negative (NEGATIVE) mg/dL Urine Glucose (UA) Negative (NEGATIVE) mg/dL Urine Ketones Negative (NEGATIVE) mg/dL Urine Occult Blood Negative (NEGATIVE) Urine Nitrite Negative (NEGATIVE) Urine Bilirubin Negative (NEGATIVE) Urine Urobilinogen 0.2 (0.2-1.0) EU/dL Ur Leukocyte Esterase Negative (NEGATIVE) 12/11/20 12/11/20 Range/Units 17:38 17:38 WBC (5.0-10.0) 10^3/uL RBC (4.50-6.00) 10^6/uL Hgb (14.0-18.0) g/dL Hct (40.0-54.0) % MCV (82.0-94.0) fL MCH (27.0-32.0) pg MCHC (33.0-38.0) g/dL RDW Coeff of Antonio (11.0-15.0) % Plt Count (150-400) 10^3/uL Neut % (Auto) (35-85) % Lymph % (Auto) (10-55) % [place] % (Auto) (0-16) % Eos % (Auto) (0-5) % Baso % (Auto) (0-3) % Neut # (Auto) (1.80-7.00) 10^3/uL Lymph # (Auto) (1.00-4.80) 10^3/uL [place] # (Auto) (0.00-0.80) 10^3/uL Eos # (Auto) (0.00-0.45) 10^3/uL Baso # (Auto) 10^3/uL PT (9.7-12.3) SEC INR (0.92-1.18) Sodium 140 (136-145) mEq/L Potassium 4.1 (3.5-5.0) mEq/L Chloride 99 (98-106) mEq/L Carbon Dioxide 28 (21-32) mmol/L BUN 39 H D (7-18) mg/dL Creatinine 1.8 H (0.7-1.3) mg/dL Est Cr Clr Drug Dosing 27.44 mL/min Estimated GFR (MDRD) 36 L (>=60) mL/min Glucose 89 (75-99) mg/dL Lactic Acid 1.4 (0.4-2.0) mmol/L Calcium 8.9 (8.4-10.1) mg/dL Total Bilirubin 0.9 (0.0-1.0) mg/dL AST 14 L (15-37) U/L ALT 16 (12-78) U/L Alkaline Phosphatase 103 (46-116) U/L Lactate Dehydrogenase 137 (100-190) U/L Creatine Kinase 36 (35-232) U/L Troponin I < 0.017 (0.00-0.06) ng/mL C-Reactive Protein 0.7 (0.2-0.8) mg/dL NT-Pro-B Natriuret Pep 327 (0-1000) pg/mL Total Protein 7.3 (6.4-8.2) g/dL Albumin 3.9 (3.4-5.0) g/dL Urine Color (YELLOW) Urine Appearance (CLEAR) Urine pH (4.5-8.0) Ur Specific Hancock (1.003-1.020) Urine Protein (NEGATIVE) mg/dL Urine Glucose (UA) (NEGATIVE) mg/dL Urine Ketones (NEGATIVE) mg/dL Urine Occult Blood (NEGATIVE) Urine Nitrite (NEGATIVE) Urine Bilirubin (NEGATIVE) Urine Urobilinogen (0.2-1.0) EU/dL Ur Leukocyte Esterase (NEGATIVE) - Radiology Interpretation Free Text/Narrative:: CXR: No acute infiltrate, no pulmonary edema, no cardiomegaly. Known rib fractures. No pneumothorax. Head CT: No acute findings CT Results Date: 12/11/20 CT Results Time: 18:28 - Re-Assessments/Exams Free Text/Narrative Re-Assessment/Exam: 12/11/20 17:27 Orthostatic vitals signs: Layin/49 HR 73, Sittin/57 HR 83, Standin/62 HR 95 12/11/20 18:34 Discussed with patient and family his results. Will admit the patient observation due to his CR, and symptomatic with lightheaded and hypotension at home. Will admit with IV fluids. Will redraw labs in the morning. Have continued his BP medication to be given in the morning but instructed the RN JORDI to check BP prior to giving. Call PCP if question about giving blood pressure medication in the morning. Departure - Departure Time of Disposition: 18:18 Disposition: Refer to Observation Condition: Fair Clinical Impression: Renal insufficiency, Lightheaded Hypotension Qualifiers: Hypotension type: orthostatic hypotension Qualified Code(s): I95.1 - Orthostatic hypotension - Discharge Information *PRESCRIPTION DRUG MONITORING PROGRAM REVIEWED*: Not Applicable *COPY OF PRESCRIPTION DRUG MONITORING REPORT IN PATIENT SARAH: Not Applicable Sepsis Event Note (ED) - Evaluation Sepsis Screening Result: No Definite Risk - Focused Exam Vital Signs: Vital Signs Temp Pulse Resp BP Pulse Ox 12/11/20 16:52 97.0 F 93 16 125/47 L 96 - My Orders Last 24 Hours: My Active Orders 12/11/20 17:16 Chest 2V [CR] Stat Head wo Cont [CT] Stat 12/11/20 17:19 Blood Culture x2 Reflex Set [OM.PC] Stat 12/11/20 17:38 CULTURE BLOOD [BC] Stat CULTURE BLOOD [BC] Stat 12/11/20 18:27 Patient Status Manage Transfer [TRANSFER] Routine 12/11/20 18:28 Resuscitation Status Routine - Assessment/Plan Last 24 Hours: My Active Orders 12/11/20 17:16 Chest 2V [CR] Stat Head wo Cont [CT] Stat 12/11/20 17:19 Blood Culture x2 Reflex Set [OM.PC] Stat 12/11/20 17:38 CULTURE BLOOD [BC] Stat CULTURE BLOOD [BC] Stat 12/11/20 18:27 Patient Status Manage Transfer [TRANSFER] Routine 12/11/20 18:28 Resuscitation Status Routine Plan: PLEASE SEE RN NOTE FOR PFSH
[2020-12-11 18:07] LABS: CHLORIDE,CL 99 mEq/L (98-106); SODIUM,NA 140 mEq/L (136-145)
[2020-12-11] MEDS ORDERED: Sodium Chloride 0.9% 500 ML IV SCH (18:45)
[2020-12-11] MEDS ORDERED: Enoxaparin 30 MG/0.3 ML Syringe SUBCUT SCH (18:45)
[2020-12-11] MEDS ORDERED: Non-Formulary Medication 1 Each (Zolpidem Tartrate 10 MG Tablet) PO PRN (18:45)
[2020-12-11] MEDS ORDERED: Morphine 2 MG/ML SYRINGE IVPUSH PRN (18:45)
[2020-12-11] MEDS ORDERED: Ondansetron 4 MG/2 ML SDV IV PRN (18:45)
[2020-12-11] MEDS ORDERED: Sodium Chloride 0.9% 1,000 ML IV SCH (19:30)
[2020-12-12] MEDS ORDERED: ALLOPURINOL 100 MG PO SCH (08:00)
[2020-12-12] MEDS ORDERED: Pantoprazole 40 MG Tab.CR **PT OWN PO SCH (08:00)
[2020-12-12 08:14] VITALS: BP 105/55; PULSE 70
[2020-12-12] MEDS ORDERED: HCTZ PO SCH (08:30)
[2020-12-12] MEDS ORDERED: LISINOPRIL PO SCH (08:30)
[2020-12-12] MEDS ORDERED: HYDROCODONE PO PRN (08:37)
[2020-12-12] MEDS ORDERED: ACETAMINOPHEN PO PRN (08:37)
[2020-12-12] MEDS: AMLODIPINE BESYLATE 5 MG PO SCH ×2 (09:00→09:47)
--- NOTE | 2020-12-12 10:39 | DISCH ---
ADMISSION DIAGNOSES: 1. Orthostasis. 2. Weakness. 3. Acute kidney injury. 4. Hypotension. DISCHARGE DIAGNOSIS: 1. HYPOTENSION, IMPROVED. 2. ACUTE KIDNEY INJURY, IMPROVED. 3. HISTORY OF HYPERTENSION. 4. HISTORY OF CHRONIC LYMPHOCYTIC LEUKEMIA. HISTORY: The patient is an 89-year-old who presented with weakness and some dizziness, feeling lightheaded. At the time he was evaluated, Win said he was orthostatic, had a slight bump in his creatinine to 1.8 with a normal creatinine around 1.3. The rest of his labs including a troponin, EKG all looked fine. His urine did not show too much concentration. The patient was admitted due to his low blood pressure and acute bump in creatinine. HOSPITAL COURSE: The patient was given IV fluids upon admit, I believe a total of a liter and a half. He has basically been monitored. His blood pressure medications have been held and this morning he looks wonderful. His creatinine was down to 1.4. Clinically, he looks well. He denies any symptoms at this time of lightheadedness. He has been up and walking and looks stable for discharge. His blood pressure is still a little bit low this morning, so I am going to hold his Zestoretic and just have him stay on his Norvasc 5 for now. We will follow him up in the clinic in 1 week for recheck. COMPLICATIONS: During his stay were none. CONSULTATIONS: None. DISPOSITION: Discharged home. BENOIT /[id number]
[2020-12-12] MEDS ORDERED: MIRTAZAPINE 15 MG PO SCH (20:00)
[2020-12-12] MEDS ORDERED: Enoxaparin 40 MG/0.4 ML Syringe SUBCUT SCH (20:00)
== END 2020-12-12 10:35 | disposition home or self-care (01) ==
LOC: CC.ED 16:45 → CC.MS 18:27 → UNDOADMOB 18:30 → CC.MS 18:30
PROVIDERS: ADMIT Nurse Practitioner; ATTEND Family Medicine
DX: I95.1 Orthostatic hypotension (principal); N17.9 Acute kidney failure, unspecified; R53.1 Weakness; E78.00 Pure hypercholesterolemia, unspecified; I10 Essential (primary) hypertension; E66.9 Obesity, unspecified; K21.9 Gastro-esophageal reflux disease without esophagitis; Z90.49 Acquired absence of other specified parts of digestive tract; Z79.899 Other long term (current) drug therapy; Z98.890 Other specified postprocedural states; R06.02 Shortness of breath
CPT/HCPCS: 36415; 70450; 71046; 80048; 80053; 81003; 82550; 83605; 83615; 83880; 84484; 85025; 85610; 86140; 87040; 93005; 93010; 96372; 99217; 99220; 99285; A9270; G0378; J1650; J7030

== ENCOUNTER 2021-02-02 10:03 | Observation (INO) | payer MEDICARE, OTHER ==
[2021-02-02 10:42] LABS: CHLORIDE,CL 102 mEq/L (98-106); SODIUM,NA 140 mEq/L (136-145)
[2021-02-02 10:47] LABS: PTT,PARTIAL THROMBOPLSTIN TIME 24.5 SEC (23.2-32.3)
[2021-02-02] MEDS ORDERED: Iopamidol 755 Mg/ML 100 ML Bottle IVPUSH ONE (11:39)
[2021-02-02] MEDS ORDERED: Acetaminophen 325 MG Tab PO PRN (15:28)
[2021-02-02] MEDS ORDERED: ZOLPIDEM TARTRATE 5 MG PO PRN (16:48)
[2021-02-02] MEDS: Morphine 2 MG/ML SYRINGE IVPUSH PRN ×2 (16:48→19:55)
[2021-02-02] MEDS ORDERED: Mirtazapine 15 MG Tab **PTOM PO SCH (20:00)
[2021-02-02] MEDS: Acetaminophen/oxyCODONE 325-5 MG Tab PO PRN (21:38)
[2021-02-03] MEDS: Acetaminophen/oxyCODONE 325-5 MG Tab PO PRN (03:28)
[2021-02-03] MEDS ORDERED: ANORO ELLIPTA INH SCH (08:00)
[2021-02-03] MEDS ORDERED: Pantoprazole 40 MG Tab.CR **PTOM PO SCH (08:00)
[2021-02-03] MEDS ORDERED: LISINOPRIL PO SCH (08:00)
[2021-02-03] MEDS ORDERED: AMLODIPINE 5 MG PO SCH (08:00)
[2021-02-03] MEDS ORDERED: HYDROCHLOROTHIAZIDE PO SCH (08:00)
[2021-02-03] MEDS ORDERED: Enoxaparin 40 MG/0.4 ML Syringe SUBCUT SCH (12:00)
[2021-02-03 13:07] VITALS: BP 145/56; PULSE 75
--- NOTE | 2021-02-03 20:21 | PCM.DCSUM1 ---
Discharge Summary - Hospital Course Free Text/Narrative:: Kris is an 89 year old male who presented to clinic to see Jessee Ghosh due to left anterior chest pain. States had started 24 hours prior but was getting worse. had fallen about 5 weeks prior and did sustain 4 rib fractures at that time but had been doing well at home. No new falls or injury. No cough. No fevers. States that the pain was not covered with tylenol. Had work up done at clinic with labs and chest xray. Labs were unremarkable. Chest xray did show small pneumothorax with old fractures that had callus noted. CT scan was done that showed pneumothorax that was less than 10%. Was given a Toradol injection and returned home. Family called back in and states he was not doing well with the pain at home. Admitted to observation for pain control and repeat xray to check status of pneumothorax. Diagnosis: Stroke: No Modified Demetra Scale: No Symptoms at All Modified Anatone Scale Score: 0 - Discharge Data Discharge Date: 02/03/21 Discharge Disposition: Home, Self-Care 01 Condition: Good - Referral to Home Health Primary Care Physician: Johann Ghosh PA-C - Patient Summary/Data Complications: none Hospital Course: Patient doing well this am. Was still dealing with a fair amount of pain last evening. Had pain meds and a sleeping med and did settle down for the evening. This am, denies any pain. He was taken down for xray, able to assist himself in and out of bed and it did not trigger any pain. Has been ambulating about today and doing well. No return of pain today. Had repeat xray today, does show improvement of the pneumothorax as well. Discussed discharge versus staying one more day to monitor pain with activity. Patient requesting to be discharged home. Has several family members who will assist with his meds and meals at home. - Patient Instructions Diet: Usual Diet as Tolerated Activity: As Tolerated - Discharge Plan *PRESCRIPTION DRUG MONITORING PROGRAM REVIEWED*: No *COPY OF PRESCRIPTION DRUG MONITORING REPORT IN PATIENT SARAH: No Home Medications: Home Meds amLODIPine Besylate [Amlodipine Besylate] 5 mg PO DAILY 10/12/14 [History] Hydrocodone/Acetaminophen [HYDROcodone-Acetaminophen 5-325 MG] 1 - 2 tab PO Q6H PRN 08/25/16 [History] Zolpidem Tartrate 5 - 10 mg PO BEDTIME PRN 10/15/16 [History] Pantoprazole Sodium 40 mg PO DAILY 04/19/19 [History] allopurinoL [Zyloprim] 100 mg PO DAILY 04/19/19 [History] Mirtazapine 1 tab PO BEDTIME 08/10/20 [History] ALPRAZolam [Xanax] 0.25 mg PO Q8H PRN 02/02/21 [History] Cyclobenzaprine [Flexeril] 10 mg PO BEDTIME 02/02/21 [History] Lisinopril/Hydrochlorothiazide [Lisinopril-HCTZ 10-12.5 MG] 1 tab PO DAILY 02/02/21 [History] Meloxicam 7.5 mg PO BID 02/02/21 [History] Non-Formulary Medication [NF Drug] 1 each IH DAILY 02/02/21 [History] Potassium Gluconate [Potassium] 600 mg PO DAILY 02/02/21 [History] Referrals: Misbah Tran MD [ED Physician] - (Hospital follow up in one week with Dr. Tran ) - Discharge Summary/Plan Comment DC Time >30 min.: No - General Info Date of Service: 02/03/21 Admission Dx/Problem (Free Text: Chest wall pain Functional Status: Reports: Pain Controlled, Tolerating Diet, Ambulating - Review of Systems General: Denies: Fever, Weakness, Fatigue, Malaise HEENT: Reports: No Symptoms Pulmonary: Denies: Shortness of Breath, Cough Cardiovascular: Denies: Chest Pain, Edema, Lightheadedness Gastrointestinal: Denies: Abdominal Pain, Nausea, Vomiting Genitourinary: Reports: No Symptoms Musculoskeletal: Reports: No Symptoms Skin: Reports: No Symptoms Neurological: Reports: No Symptoms - Patient Data Vitals - Most Recent: Last Vital Signs Temp 96.1 F L 02/03/21 12:00 Pulse 75 02/03/21 12:00 Resp 18 02/03/21 12:00 BP 145/56 H 02/03/21 12:00 Pulse Ox 97 02/03/21 12:00 Weight - Most Recent: 193 lb Med Orders - Current: Current Medications Discontinued Medications Acetaminophen (Acetaminophen 325 Mg Tab) 650 mg PO Q4H PRN PRN Reason: Pain (Mild 1-3)/fever Allopurinol (Allopurinol 100 Mg Tab Ptom) 100 mg PO DAILY ULISES Last Admin: 02/03/21 08:08 Dose: 100 mg Documented by: Enoxaparin Sodium (Enoxaparin 40 Mg/0.4 Ml Syringe) 40 mg SUBCUT Q24H [facility] Last Admin: 02/03/21 13:09 Dose: Not Given Documented by: Heparin Sodium (Porcine) (Heparin Sodium 100 Units/Ml 5 Ml Syringe) Confirm Administered Dose 500 units .ROUTE .STK-MED ONE Stop: 02/03/21 13:23 Iopamidol (Iopamidol 755 Mg/Ml 100 Ml Bottle) 100 ml IVPUSH ONETIME ONE Stop: 02/02/21 11:40 Last Admin: 02/02/21 12:09 Dose: 100 ml Documented by: Mirtazapine (Mirtazapine 15 Mg Tab Ptom) 15 mg PO BEDTIME [facility] Last Admin: 02/02/21 19:45 Dose: 15 mg Documented by: Morphine Sulfate (Morphine 2 Mg/Ml Syringe) 2 mg IVPUSH Q2H PRN PRN Reason: Pain (severe 7-10) Last Admin: 02/02/21 19:55 Dose: 2 mg Documented by: Amlodipine 5mg Tab * (*Ptom) 0 each PO DAILY [facility] Last Admin: 02/03/21 08:09 Dose: 1 each Documented by: Lisinopril/Hydrochlorothiazide 10-12.5mg Tab Ptom 0 tab PO DAILY [facility] Last Admin: 02/03/21 08:07 Dose: 1 tab Documented by: Zolpidem Tartrate 5 (Mg Tablet Ptom) 5 mg PO BEDTIME PRN PRN Reason: Insomnia Last Admin: 02/02/21 19:46 Dose: 5 mg Documented by: Anoro Ellipta 62.5- (25 Ptom*) 0 each INH DAILY [facility] Last Admin: 02/03/21 08:09 Dose: 1 each Documented by: Oxycodone/Acetaminophen (Acetaminophen/Oxycodone 325-5 Mg Tab) 1 tab PO Q4H PRN PRN Reason: Pain (moderate 4-6) Last Admin: 02/03/21 03:28 Dose: 1 tab Documented by: Pantoprazole Sodium (Pantoprazole 40 Mg Tab.Cr Ptom) 40 mg PO DAILY [facility] Last Admin: 02/03/21 08:08 Dose: 40 mg Documented by: - Exam General: Reports: Alert, Oriented HEENT: Reports: Mucous Membr. Moist/Parmele Neck: Reports: Supple Lungs: Reports: Clear to Auscultation, Normal Respiratory Effort Cardiovascular: Reports: Regular Rate, Regular Rhythm GI/Abdominal Exam: Normal Bowel Sounds, Soft, Non-Tender Extremities: Normal Inspection, No Pedal Edema Skin: Reports: Warm, Dry Neurological: Reports: No New Focal Deficit
== END 2021-02-03 13:15 | disposition home or self-care (01) ==
LOC: CC.FCMC 10:03 → CC.MS 15:19 → UNDOADMOB 15:19 → CC.MS 15:28
PROVIDERS: ADMIT Physician Assistant Medical; ATTEND Family Medicine
DX: R07.89 Other chest pain (principal); C85.90 Non-Hodgkin lymphoma, unspecified, unspecified site; J90 Pleural effusion, not elsewhere classified; J44.9 Chronic obstructive pulmonary disease, unspecified; Z87.891 Personal history of nicotine dependence; I10 Essential (primary) hypertension; E78.5 Hyperlipidemia, unspecified; Z79.899 Other long term (current) drug therapy; Z87.81 Personal history of (healed) traumatic fracture
CPT/HCPCS: 36415; 71046; 71260; 80053; 82550; 83880; 84484; 85025; 85610; 85730; 86140; 93005; 93010; 96374; 96376; 99217; 99220; A9270-GY; G0378; J2270; Q9967

== ENCOUNTER 2021-09-03 13:32 | Observation (INO) | payer MEDICARE, OTHER ==
[2021-09-03] MEDS ORDERED: Acetaminophen 325 MG Tab PO PRN (14:04)
[2021-09-03] MEDS ORDERED: Ondansetron 4 MG Tab.DIS PO PRN ×2 (14:04→14:37)
[2021-09-03] MEDS ORDERED: Sodium Chloride 0.9% 10 ML Syringe FLUSH PRN (14:04)
[2021-09-03 14:11] LABS: CHLORIDE,CL 103 mEq/L (98-106); SODIUM,NA 142 mEq/L (136-145)
[2021-09-03] MEDS ORDERED: Non-Formulary Medication 1 Each (Zolpidem Tartrate 10 MG Tablet) PO PRN (14:37)
[2021-09-03] MEDS ORDERED: ALPRAZolam 0.25 MG Tab PO PRN (14:37)
[2021-09-03] MEDS ORDERED: Non-Formulary Medication 1 Each (Diphenhydramine [Benadryl] 25 MG Tablet) PO PRN (14:37)
[2021-09-03] MEDS: Lactated Ringers 1,000 ML IV SCH ×2 (15:21→23:25)
[2021-09-03] MEDS ORDERED: Meloxicam 7.5 MG Tab PO SCH (20:00)
[2021-09-03] MEDS ORDERED: Mirtazapine 15 MG Tab **PTOM PO SCH (20:00)
[2021-09-03] MEDS ORDERED: CYCLOBENZAPRINE 10 MG PO PRN (20:00)
[2021-09-03] MEDS: GLYCOPYRROLATE INH SCH (20:59)
[2021-09-03] MEDS: FORMOTEROL FUM INH SCH (20:59)
[2021-09-03] MEDS ORDERED: Melatonin 3 MG Tab PO PRN (21:24)
[2021-09-04] MEDS ORDERED: LISINOPRIL PO SCH (08:00)
[2021-09-04] MEDS: FORMOTEROL FUM INH SCH (08:00)
[2021-09-04] MEDS ORDERED: ZINC 50 MG PO SCH (08:00)
[2021-09-04] MEDS ORDERED: POTASSIUM GLUCONATE 600 MG PO SCH (08:00)
[2021-09-04] MEDS: GLYCOPYRROLATE INH SCH (08:00)
[2021-09-04] MEDS ORDERED: METHYLPHENIDATE HCL 5 MG PO SCH (08:00)
[2021-09-04] MEDS ORDERED: AMLODIPINE 5 MG PO SCH (08:00)
[2021-09-04] MEDS ORDERED: HYDROCHLOROTHIAZIDE PO SCH (08:00)
[2021-09-04] MEDS ORDERED: Allopurinol 100 MG Tab **PTOM PO SCH (08:00)
[2021-09-04] MEDS ORDERED: Cyanocobalamin (Vitamin B12) 1,000 MCG Tab PO SCH (08:00)
[2021-09-04 10:19] VITALS: BP 132/53; PULSE 70
[2021-09-04] MEDS ORDERED: Enoxaparin 30 MG/0.3 ML Syringe SUBCUT SCH (12:00)
== END 2021-09-04 10:02 | disposition home or self-care (01) ==
LOC: UNDOADMOB 13:32 → CC.MS 13:32
PROVIDERS: ADMIT Nurse Practitioner Family; ATTEND Family Medicine
DX: R19.7 Diarrhea, unspecified (principal); R53.1 Weakness; E78.00 Pure hypercholesterolemia, unspecified; I10 Essential (primary) hypertension; K21.9 Gastro-esophageal reflux disease without esophagitis; E66.9 Obesity, unspecified; Z68.30 Body mass index [BMI] 30.0-30.9, adult; M19.90 Unspecified osteoarthritis, unspecified site; Z90.49 Acquired absence of other specified parts of digestive tract; Z98.890 Other specified postprocedural states; Z79.1 Long term (current) use of non-steroidal anti-inflammatories (NSAID); Z79.899 Other long term (current) drug therapy; Z20.822 Contact with and (suspected) exposure to COVID-19
CPT/HCPCS: 36415; 74018; 80053; 81003; 85025; 87493; 97161-GP; A9270-GY; G0378; J7120; U0002

== ENCOUNTER 2021-11-04 11:25 | Inpatient (IN) | payer MEDICARE, OTHER ==
[2021-11-04] MEDS ORDERED: Sodium Chloride 0.9% 10 ML Syringe FLUSH PRN (12:22)
[2021-11-04] MEDS ORDERED: Sodium Chloride 0.9% 1,000 ML IV SCH (12:30)
[2021-11-04] MEDS: Morphine 2 MG/ML SYRINGE IVPUSH PRN ×2 (12:37→15:09)
[2021-11-04] MEDS ORDERED: Diphtheria,Pertussis(Acell),Tetanus Vaccine 0.5 ML Syringe IM ONE (12:58)
[2021-11-04] MEDS: Lidocaine 5% 700 MG Patch TRDERM SCH (14:00)
[2021-11-04] MEDS ORDERED: Docusate Sodium 100 MG Cap PO PRN (14:37)
[2021-11-04] MEDS ORDERED: Acetaminophen 325 MG Tab PO PRN (14:37)
[2021-11-04] MEDS ORDERED: Albuterol 0.083% 2.5 MG/3 ML Neb Soln NEB PRN (14:37)
[2021-11-04] MEDS ORDERED: Ondansetron 4 MG/2 ML SDV IV PRN (14:37)
[2021-11-04] MEDS ORDERED: Ondansetron 4 MG Tab.DIS PO PRN (14:37)
[2021-11-04] MEDS: Sodium Chloride 0.9% 1,000 ML IV SCH (15:08)
[2021-11-04] MEDS: Melatonin 3 MG Tab PO SCH (19:50)
[2021-11-04] MEDS: Acetaminophen/HYDROcodone 325-5 MG Tab PO PRN (19:51)
[2021-11-04] MEDS: Albuterol 0.083% 2.5 MG/3 ML Neb Soln NEB SCH (19:51)
[2021-11-05] MEDS: Sodium Chloride 0.9% 1,000 ML IV SCH (02:46)
[2021-11-05] MEDS: Acetaminophen/HYDROcodone 325-5 MG Tab PO PRN ×4 (03:33→21:23)
[2021-11-05] MEDS: Allopurinol 100 MG Tab PO SCH (07:42)
[2021-11-05] MEDS: amLODIPine 10 MG Tab PO SCH (07:42)
[2021-11-05] MEDS: Pantoprazole 40 MG Tab.CR PO SCH (07:42)
[2021-11-05] MEDS: Hydrochlorothiazide 12.5 MG Cap PO SCH (07:42)
[2021-11-05] MEDS: Polyethylene Glycol 3350 Powder 17 GM Packet PO SCH (07:44)
[2021-11-05] MEDS: Lisinopril 10 MG Tab PO SCH (07:44)
[2021-11-05] MEDS: Albuterol 0.083% 2.5 MG/3 ML Neb Soln NEB SCH ×2 (07:45→19:29)
[2021-11-05 07:47] LABS: CHLORIDE,CL 104 mEq/L (98-106); SODIUM,NA 140 mEq/L (136-145)
[2021-11-05] MEDS ORDERED: Non-Formulary Medication 1 Each (Lisinopril/Hydrochlorothiazide 1 TAB Tablet) PO SCH (08:00)
[2021-11-05] MEDS: Cyclobenzaprine 10 MG Tab PO SCH ×2 (08:59→19:29)
[2021-11-05] MEDS ORDERED: Enoxaparin 40 MG/0.4 ML Syringe SUBCUT SCH (12:00)
[2021-11-05] MEDS: Lidocaine 5% 700 MG Patch TRDERM SCH (13:53)
[2021-11-05] MEDS: Melatonin 3 MG Tab PO SCH (19:28)
[2021-11-05] MEDS: Enoxaparin 40 MG/0.4 ML Syringe SUBCUT SCH (19:30)
[2021-11-06] MEDS: Pantoprazole 40 MG Tab.CR PO SCH (06:39)
[2021-11-06 07:15] LABS: CHLORIDE,CL 105 mEq/L (98-106); SODIUM,NA 141 mEq/L (136-145)
[2021-11-06] MEDS: Polyethylene Glycol 3350 Powder 17 GM Packet PO SCH (07:20)
[2021-11-06] MEDS: Cyclobenzaprine 10 MG Tab PO SCH ×2 (07:21→19:55)
[2021-11-06] MEDS: Allopurinol 100 MG Tab PO SCH (07:21)
[2021-11-06] MEDS: Albuterol 0.083% 2.5 MG/3 ML Neb Soln NEB SCH ×2 (07:21→19:55)
[2021-11-06] MEDS: Hydrochlorothiazide 12.5 MG Cap PO SCH (07:21)
[2021-11-06] MEDS: amLODIPine 10 MG Tab PO SCH (07:22)
[2021-11-06] MEDS: Acetaminophen/HYDROcodone 325-5 MG Tab PO PRN ×3 (07:22→19:56)
[2021-11-06] MEDS: Lisinopril 10 MG Tab PO SCH (07:22)
[2021-11-06] MEDS ORDERED: Lidocaine/Prilocaine 2.5-2.5% Crm 5 GM Tube TOP ONE (08:25)
[2021-11-06] MEDS: Lidocaine 5% 700 MG Patch TRDERM SCH (13:03)
[2021-11-06] MEDS ORDERED: Alteplase 2 MG Vial IVPUSH ONE (15:43)
[2021-11-06] MEDS: Enoxaparin 40 MG/0.4 ML Syringe SUBCUT SCH (19:55)
[2021-11-06] MEDS: Melatonin 3 MG Tab PO SCH (19:56)
[2021-11-07] MEDS: Pantoprazole 40 MG Tab.CR PO SCH (06:38)
[2021-11-07] MEDS: Albuterol 0.083% 2.5 MG/3 ML Neb Soln NEB SCH ×2 (07:24→19:59)
[2021-11-07] MEDS: Lisinopril 10 MG Tab PO SCH (07:25)
[2021-11-07] MEDS: Allopurinol 100 MG Tab PO SCH (07:25)
[2021-11-07] MEDS: Hydrochlorothiazide 12.5 MG Cap PO SCH (07:25)
[2021-11-07] MEDS: Cyclobenzaprine 10 MG Tab PO SCH ×2 (07:25→19:57)
[2021-11-07] MEDS: amLODIPine 10 MG Tab PO SCH (07:26)
[2021-11-07] MEDS: Polyethylene Glycol 3350 Powder 17 GM Packet PO SCH (07:27)
[2021-11-07 07:43] LABS: CHLORIDE,CL 105 mEq/L (98-106); SODIUM,NA 143 mEq/L (136-145)
[2021-11-07] MEDS: Acetaminophen/HYDROcodone 325-5 MG Tab PO PRN ×2 (11:36→19:58)
[2021-11-07] MEDS: Lidocaine 5% 700 MG Patch TRDERM SCH (13:38)
[2021-11-07] MEDS: Melatonin 3 MG Tab PO SCH (19:58)
[2021-11-07] MEDS: Enoxaparin 40 MG/0.4 ML Syringe SUBCUT SCH (19:59)
[2021-11-08] MEDS: Acetaminophen/HYDROcodone 325-5 MG Tab PO PRN (07:32)
[2021-11-08] MEDS: Allopurinol 100 MG Tab PO SCH (07:33)
[2021-11-08] MEDS: Albuterol 0.083% 2.5 MG/3 ML Neb Soln NEB SCH (07:33)
[2021-11-08] MEDS: Cyclobenzaprine 10 MG Tab PO SCH (07:33)
[2021-11-08] MEDS: Hydrochlorothiazide 12.5 MG Cap PO SCH (07:34)
[2021-11-08] MEDS: Pantoprazole 40 MG Tab.CR PO SCH (07:34)
[2021-11-08] MEDS: Lisinopril 10 MG Tab PO SCH (07:34)
[2021-11-08] MEDS: amLODIPine 10 MG Tab PO SCH (07:35)
[2021-11-08] MEDS: Polyethylene Glycol 3350 Powder 17 GM Packet PO SCH (07:35)
[2021-11-08 07:37] VITALS: BP 143/67
[2021-11-08 08:26] VITALS: PULSE 77
== END 2021-11-08 10:15 | disposition swing bed (61) | DRG 184 ==
LOC: CC.ED 11:25 → CC.MS 14:16 → CC.ED 14:17
PROVIDERS: ADMIT Physician Assistant; ATTEND Physician Assistant
DX: S22.41XA Multiple fractures of ribs, right side, initial encounter for closed fracture (principal); J90 Pleural effusion, not elsewhere classified; R29.6 Repeated falls; W19.XXXA Unspecified fall, initial encounter; W18.39XA Other fall on same level, initial encounter; H54.7 Unspecified visual loss; E78.00 Pure hypercholesterolemia, unspecified; E86.0 Dehydration; I10 Essential (primary) hypertension; M19.90 Unspecified osteoarthritis, unspecified site; R53.1 Weakness; C61 Malignant neoplasm of prostate; C85.90 Non-Hodgkin lymphoma, unspecified, unspecified site; C95.90 Leukemia, unspecified not having achieved remission; G89.29 Other chronic pain; M54.2 Cervicalgia; E78.5 Hyperlipidemia, unspecified; K59.00 Constipation, unspecified; R35.0 Frequency of micturition; K21.9 Gastro-esophageal reflux disease without esophagitis; E66.9 Obesity, unspecified; Z68.33 Body mass index [BMI] 33.0-33.9, adult; Z90.49 Acquired absence of other specified parts of digestive tract; Z90.89 Acquired absence of other organs; Z79.899 Other long term (current) drug therapy; Y92.009 Unspecified place in unspecified non-institutional (private) residence as the place of occurrence of the external cause
CPT/HCPCS: 36415; 51798; 71250; 74176; 80048; 80053; 81003; 82550; 83605; 84484; 85025; 90471; 90715; 93005; 94640; 96374; 97110-GP; 97161-GP; 97530-GP; 99285-25; A9270-GY; J1642; J1650; J2270; J2997; J7030; J7613-GY

== ENCOUNTER 2021-11-08 10:43 | Inpatient (IN) | payer MEDICARE, OTHER ==
[2021-11-08] MEDS ORDERED: Ondansetron 4 MG Tab.DIS PO PRN (11:43)
[2021-11-08] MEDS ORDERED: Ondansetron 4 MG/2 ML SDV IV PRN (11:43)
[2021-11-08] MEDS ORDERED: Acetaminophen 325 MG Tab PO PRN (11:43)
[2021-11-08] MEDS ORDERED: Albuterol 0.083% 2.5 MG/3 ML Neb Soln NEB PRN (11:43)
[2021-11-08] MEDS ORDERED: Docusate Sodium 100 MG Cap PO PRN (11:43)
[2021-11-08] MEDS ORDERED: Sodium Chloride 0.9% 10 ML Syringe FLUSH PRN (11:43)
[2021-11-08] MEDS ORDERED: Morphine 2 MG/ML SYRINGE IVPUSH PRN (11:43)
[2021-11-08] MEDS: Lidocaine 5% 700 MG Patch TRDERM SCH (12:21)
[2021-11-08] MEDS: Cyclobenzaprine 10 MG Tab PO SCH (19:23)
[2021-11-08] MEDS: Melatonin 3 MG Tab PO SCH (19:23)
[2021-11-08] MEDS: Enoxaparin 40 MG/0.4 ML Syringe SUBCUT SCH (19:24)
[2021-11-08] MEDS: Albuterol 0.083% 2.5 MG/3 ML Neb Soln NEB SCH (19:24)
[2021-11-08] MEDS: Acetaminophen/HYDROcodone 325-5 MG Tab PO PRN (20:00)
[2021-11-09] MEDS: amLODIPine 10 MG Tab PO SCH (08:00)
[2021-11-09] MEDS: Polyethylene Glycol 3350 Powder 17 GM Packet PO SCH (08:03)
[2021-11-09] MEDS: Albuterol 0.083% 2.5 MG/3 ML Neb Soln NEB SCH ×2 (08:04→19:45)
[2021-11-09] MEDS: Pantoprazole 40 MG Tab.CR PO SCH (08:06)
[2021-11-09] MEDS: Allopurinol 100 MG Tab PO SCH (08:07)
[2021-11-09] MEDS: Lisinopril 10 MG Tab PO SCH (08:07)
[2021-11-09] MEDS: Hydrochlorothiazide 12.5 MG Cap PO SCH (08:08)
[2021-11-09] MEDS: Lidocaine 5% 700 MG Patch TRDERM SCH (12:33)
[2021-11-09] MEDS: Cyclobenzaprine 10 MG Tab PO SCH ×2 (12:34→19:43)
[2021-11-09] MEDS: Acetaminophen/HYDROcodone 325-5 MG Tab PO PRN (12:56)
[2021-11-09] MEDS: Melatonin 3 MG Tab PO SCH (19:45)
[2021-11-09] MEDS: Enoxaparin 40 MG/0.4 ML Syringe SUBCUT SCH (19:45)
[2021-11-10] MEDS: Pantoprazole 40 MG Tab.CR PO SCH (06:42)
[2021-11-10] MEDS: Polyethylene Glycol 3350 Powder 17 GM Packet PO SCH (08:01)
[2021-11-10] MEDS: Hydrochlorothiazide 12.5 MG Cap PO SCH (08:02)
[2021-11-10] MEDS: Lisinopril 10 MG Tab PO SCH (08:02)
[2021-11-10] MEDS: Allopurinol 100 MG Tab PO SCH (08:04)
[2021-11-10] MEDS: amLODIPine 10 MG Tab PO SCH (08:05)
[2021-11-10] MEDS: Cyclobenzaprine 10 MG Tab PO SCH ×2 (08:05→19:37)
[2021-11-10] MEDS: Albuterol 0.083% 2.5 MG/3 ML Neb Soln NEB SCH ×2 (08:11→19:42)
[2021-11-10] MEDS: Acetaminophen/HYDROcodone 325-5 MG Tab PO PRN (11:08)
[2021-11-10] MEDS: Lidocaine 5% 700 MG Patch TRDERM SCH (12:55)
[2021-11-10] MEDS: Melatonin 3 MG Tab PO SCH (19:41)
[2021-11-10] MEDS: Enoxaparin 40 MG/0.4 ML Syringe SUBCUT SCH (19:42)
[2021-11-11] MEDS: Acetaminophen/HYDROcodone 325-5 MG Tab PO PRN ×2 (00:46→11:12)
[2021-11-11] MEDS: Pantoprazole 40 MG Tab.CR PO SCH (06:34)
[2021-11-11] MEDS: Albuterol 0.083% 2.5 MG/3 ML Neb Soln NEB SCH ×2 (07:43→19:29)
[2021-11-11] MEDS: Polyethylene Glycol 3350 Powder 17 GM Packet PO SCH (07:43)
[2021-11-11] MEDS: Allopurinol 100 MG Tab PO SCH (07:44)
[2021-11-11] MEDS: amLODIPine 10 MG Tab PO SCH (07:44)
[2021-11-11] MEDS: Hydrochlorothiazide 12.5 MG Cap PO SCH (07:44)
[2021-11-11] MEDS: Lisinopril 10 MG Tab PO SCH (07:44)
[2021-11-11] MEDS: Cyclobenzaprine 10 MG Tab PO SCH ×2 (07:45→19:28)
[2021-11-11] MEDS: Lidocaine 5% 700 MG Patch TRDERM SCH ×2 (11:12→13:32)
[2021-11-11] MEDS: Enoxaparin 40 MG/0.4 ML Syringe SUBCUT SCH (19:28)
[2021-11-11] MEDS: Melatonin 3 MG Tab PO SCH (19:28)
[2021-11-12] MEDS: Acetaminophen/HYDROcodone 325-5 MG Tab PO PRN ×2 (01:48→12:05)
[2021-11-12] MEDS: Pantoprazole 40 MG Tab.CR PO SCH (06:15)
[2021-11-12] MEDS: Albuterol 0.083% 2.5 MG/3 ML Neb Soln NEB SCH ×2 (08:06→20:40)
[2021-11-12] MEDS: Hydrochlorothiazide 12.5 MG Cap PO SCH (08:07)
[2021-11-12] MEDS: Lisinopril 10 MG Tab PO SCH (08:07)
[2021-11-12] MEDS: Allopurinol 100 MG Tab PO SCH (08:09)
[2021-11-12] MEDS: Polyethylene Glycol 3350 Powder 17 GM Packet PO SCH (08:09)
[2021-11-12] MEDS: amLODIPine 10 MG Tab PO SCH (08:12)
[2021-11-12] MEDS: Cyclobenzaprine 10 MG Tab PO SCH ×2 (08:13→20:40)
[2021-11-12] MEDS: Lidocaine 5% 700 MG Patch TRDERM SCH (11:30)
[2021-11-12] MEDS: Enoxaparin 40 MG/0.4 ML Syringe SUBCUT SCH (20:40)
[2021-11-12] MEDS: Melatonin 3 MG Tab PO SCH (20:41)
[2021-11-13] MEDS: Acetaminophen/HYDROcodone 325-5 MG Tab PO PRN ×3 (01:59→19:41)
[2021-11-13] MEDS: Polyethylene Glycol 3350 Powder 17 GM Packet PO SCH (07:53)
[2021-11-13] MEDS: Pantoprazole 40 MG Tab.CR PO SCH (07:53)
[2021-11-13] MEDS: Hydrochlorothiazide 12.5 MG Cap PO SCH (07:54)
[2021-11-13] MEDS: Albuterol 0.083% 2.5 MG/3 ML Neb Soln NEB SCH ×2 (07:54→19:28)
[2021-11-13] MEDS: Lisinopril 10 MG Tab PO SCH (07:55)
[2021-11-13] MEDS: Cyclobenzaprine 10 MG Tab PO SCH ×2 (07:55→19:28)
[2021-11-13] MEDS: Allopurinol 100 MG Tab PO SCH (07:55)
[2021-11-13] MEDS: amLODIPine 10 MG Tab PO SCH (07:57)
[2021-11-13] MEDS: Lidocaine 5% 700 MG Patch TRDERM SCH (12:25)
[2021-11-13] MEDS: Enoxaparin 40 MG/0.4 ML Syringe SUBCUT SCH (19:26)
[2021-11-13] MEDS: Melatonin 3 MG Tab PO SCH (19:38)
[2021-11-14] MEDS: Acetaminophen/HYDROcodone 325-5 MG Tab PO PRN (03:10)
[2021-11-14] MEDS: Pantoprazole 40 MG Tab.CR PO SCH (06:35)
[2021-11-14] MEDS: Cyclobenzaprine 10 MG Tab PO SCH (07:32)
[2021-11-14] MEDS: Hydrochlorothiazide 12.5 MG Cap PO SCH (07:33)
[2021-11-14] MEDS: Polyethylene Glycol 3350 Powder 17 GM Packet PO SCH (07:33)
[2021-11-14] MEDS: Lisinopril 10 MG Tab PO SCH (07:33)
[2021-11-14] MEDS: Allopurinol 100 MG Tab PO SCH (07:34)
[2021-11-14] MEDS: amLODIPine 10 MG Tab PO SCH (07:35)
[2021-11-14 07:36] VITALS: BP 128/64
[2021-11-14] MEDS: Albuterol 0.083% 2.5 MG/3 ML Neb Soln NEB SCH (07:36)
[2021-11-14 08:12] VITALS: PULSE 74
[2021-11-14] MEDS: Lidocaine 5% 700 MG Patch TRDERM SCH (11:36)
== END 2021-11-14 15:50 | disposition home health service (06) | DRG 184 ==
LOC: CC.MS 10:43 → UNDOADMIN 10:43 → CC.MS 11:46
PROVIDERS: ADMIT Nurse Practitioner Family; ATTEND Nurse Practitioner Family
DX: S22.41XA Multiple fractures of ribs, right side, initial encounter for closed fracture (principal); J90 Pleural effusion, not elsewhere classified; R29.6 Repeated falls; E86.0 Dehydration; Z79.899 Other long term (current) drug therapy; W19.XXXA Unspecified fall, initial encounter; Y92.002 Bathroom of unspecified non-institutional (private) residence as the place of occurrence of the external cause
CPT/HCPCS: 94640; 97110-GP; 97530-GP; 99315; A9270-GY; J1642; J1650; J7613-GY

== ENCOUNTER 2022-01-04 12:33 | Emergency (ER) | payer MEDICARE, OTHER ==
[2022-01-04 13:02] VITALS: BP 133/70; PULSE 90
[2022-01-04] MEDS ORDERED: Lidocaine 1% with EPINEPHrine 1:100,000 20 ML MDV INJECT ONE (13:15)
[2022-01-04] MEDS ORDERED: Bacitracin/Neomycin/Polymyxin B Oint 0.9 GM U/D Packet TOP ONE (13:15)
== END 2022-01-04 15:00 | disposition home or self-care (01) ==
LOC: CC.ED 12:33
DX: S01.81XA Laceration without foreign body of other part of head, initial encounter (principal); E78.00 Pure hypercholesterolemia, unspecified; I10 Essential (primary) hypertension; K21.9 Gastro-esophageal reflux disease without esophagitis; Z79.899 Other long term (current) drug therapy; Z88.8 Allergy status to other drugs, medicaments and biological substances; W10.9XXA Fall (on) (from) unspecified stairs and steps, initial encounter
CPT/HCPCS: 12013; 70450; 99283; 99283-25